=== PATIENT | male | born 1980 | race Caucasian/White ===

== ENCOUNTER 2023-09-14 03:52 | Emergency (ER) | payer OTHER, SELFPAY ==
[2023-09-14 03:56] VITALS: BP 145/99
[2023-09-14 04:21] VITALS: BMI 44.1
[2023-09-14 04:45] VITALS: BP 127/89
[2023-09-14 04:58] LABS: Urine Albumin Negative (Neg - Trace); Urine Bilirubin Negative (Negative); Urine Character Clear (Clear); Urine Color Yellow; Urine Glucose Negative (Negative); Urine Ketone Negative (Negative); Urine Leukocyte Negative (Negative); Urine Nitrite Negative (Negative); Urine Occult Blood Negative (Negative); Urine Urobilinogen Negative (Neg - 1+)
--- NOTE | 2023-09-14 04:58 | ED.GENMED ---
History of Present Illness
<LORE Cade - Last Filed: 09/14/23 05:57>
General
Chief Complaint: Abdominal Pain
Time Seen by Provider: 09/14/23 04:01
History of Present Illness
History of Present Illness:
Pt is a 42 y/o male with PMHx of HTN, GERD, and Lupus presenting for abdominal pain x 2.5 hours. He states that he had 4 bouts of nonbloody diarrhea from 9pm to 10:30pm, went to bed, and woke up at 0230am this morning due to lower abdominal pain. He
states that the pain was initially in the groin and lower abdomen but is now only in the lower abdomen. He states it does not radiate anywhere and is a 6/10 at rest and an 8/10 with movement. He states he took Tylenol when the pain started which
mildly alleviated the symptoms. He states he has had pancreatitis in the past but this pain is much lower than it was then. He denies any alcohol, drug, or tobacco use. He denies any fevers, nausea, vomiting, back pain, chest pain, SOB, or urinary
symptoms.
Past History
<LORE Cade - Last Filed: 09/14/23 05:57>
Past History
ED Past Medical History: GERD, Other (Diverticulosis) and Other
ED Past Surgical History: Other (L hernia repair)
Social History
Tobacco: Non-smoker
Alcohol: None
Drug: None
Personal:
Living: with family
Employment: Employed
Family History
Family History: Other (no h/o gallstones)
Phy Exam
<LORE Cade - Last Filed: 09/14/23 05:57>
Physical Exam
Physical Exam:
GENERAL: Alert , in no apparent distress
EYE: pupils equal and reactive
Throat: Airway intact, no exudates
NECK: Supple, no significant adenopathy.
CARDIAC: Regular rate and rhythm .
LUNGS: Clear breath sounds bilaterally, no acute respiratory distress, no wheezes/rales/rhonchi
ABDOMEN: Pain with palpation to the entire lower abdomen, worse in the middle lower abdomen. Negative Rovsing's, psoas, and obturator signs. Soft, nondistended, no cvat. No suprapubic tenderness.
NEUROLOGICAL: Alert and oriented, no focal neuro deficits
SKIN: Warm and dry, skin intact.
MUSCULOSKELETAL: No edema, well perfused.
PSYCH: Normal and appropriate interaction.
Course
<Sky Reid [facility] - Last Filed: 09/14/23 05:57>
Orders/Labs/Results
Orders:
Orders
09/14/23 04:01
Electrocardiogram (*1) Stat
Reason for Study: Abdominal Pain
Cardiac Monitoring- Treatment ONCE
EKG- Treatment ONCE
09/14/23 04:46
Complete Blood Count/With Diff Urgent
Comprehensive Metabolic Panel Urgent
Lipase Urgent
PTT Urgent
Prothrombin Time Urgent
Troponin I Urgent
Urinalysis Reflex To Culture Urgent
Date Specimen was Collected: 09/14/23
Time Specimen was Collected: 04:18
09/14/23 05:13
CT Abd/pelvis W Iv Cont Urgent
Comment:
Reason For Exam: lowe abdominal pain
09/14/23 06:13
Amoxicillin 875 mg/Clav 125 mg [Augmentin 875 mg/125 mg] 1 tablet PO NOW STA
Abnormal Lab Results
09/14/23
04:46
Absolute Neuts (auto) 8.7 H 10^3/uL
(1.4-6.5)
Absolute Lymphs (auto) 1.0 L 10^3/uL
(1.2-3.4)
Neutrophils % 83.6 H %
(42.2-75.2)
Lymphocytes % 9.9 L %
(20.5-51.1)
APTT 36.7 H Sec
(23.4-35.0)
Glucose 106 H mg/dl
(70-99)
09/14/23 04:46
09/14/23 04:46
Vital Signs
Initial and Last Documented VS:
Initial Vital Signs
Temp Pulse Resp BP Pulse Ox
99.6 F 91 20 145/99 99
09/14/23 03:56 09/14/23 03:56 09/14/23 03:56 09/14/23 03:56 09/14/23 03:56
Last Documented Vital Signs
Temp Pulse Resp BP Pulse Ox
99.6 F 94 20 130/83 99
09/14/23 03:56 09/14/23 05:30 09/14/23 05:30 09/14/23 05:30 09/14/23 05:30
<Ashwin Lloyd, DO - Last Filed: 09/14/23 06:36>
Orders/Labs/Results
Orders:
Orders
09/14/23 04:01
Electrocardiogram (*1) Stat
Reason for Study: Abdominal Pain
Cardiac Monitoring- Treatment ONCE
EKG- Treatment ONCE
09/14/23 04:46
Complete Blood Count/With Diff Urgent
Comprehensive Metabolic Panel Urgent
Lipase Urgent
PTT Urgent
Prothrombin Time Urgent
Troponin I Urgent
Urinalysis Reflex To Culture Urgent
Date Specimen was Collected: 09/14/23
Time Specimen was Collected: 04:18
09/14/23 05:13
CT Abd/pelvis W Iv Cont Urgent
Comment:
Reason For Exam: lowe abdominal pain
09/14/23 06:13
Amoxicillin 875 mg/Clav 125 mg [Augmentin 875 mg/125 mg] 1 tablet PO NOW STA
Abnormal Lab Results
09/14/23
04:46
Absolute Neuts (auto) 8.7 H 10^3/uL
(1.4-6.5)
Absolute Lymphs (auto) 1.0 L 10^3/uL
(1.2-3.4)
Neutrophils % 83.6 H %
(42.2-75.2)
Lymphocytes % 9.9 L %
(20.5-51.1)
APTT 36.7 H Sec
(23.4-35.0)
Glucose 106 H mg/dl
(70-99)
09/14/23 04:46
09/14/23 04:46
Vital Signs
Initial and Last Documented VS:
Initial Vital Signs
Temp Pulse Resp BP Pulse Ox
99.6 F 91 20 145/99 99
09/14/23 03:56 09/14/23 03:56 09/14/23 03:56 09/14/23 03:56 09/14/23 03:56
Last Documented Vital Signs
Temp Pulse Resp BP Pulse Ox
99.6 F 94 20 130/83 99
09/14/23 03:56 09/14/23 05:30 09/14/23 05:30 09/14/23 05:30 09/14/23 05:30
<LORE Cade - Last Filed: 09/14/23 05:57>
*Pulse Oximetry
Patient hypoxic: no
*EKG
Interpreted by ED Provider?: Yes
EKG Intrepretation Date: 09/14/23
Interpretation: abnormal
Comparison EKG: no changes
Heart Rate: 92
Rate: normal
Rhythm: sinus
[place]: normal axis
Interval: normal interval
QRS Pattern: low voltage and left vent hypertrophy
Ischemia: no ischemia
*Cake Cutter Machine Interpretation
Rate: Cake Cutter Machine- N/A
*Critical Care Note
Total Time (30-74mins, 75-104mins- exclusive of procedures): Not Applicable
<Ashwin Lloyd DO - Last Filed: 09/14/23 06:36>
Update Note
Update Note:
Findings:
Visualized portion of the lung bases are unremarkable.
The liver, spleen, kidneys, adrenal glands and pancreas are within normal limits. Gallbladder is without calcified stones.
No abdominal aortic aneurysm.
No enlarged lymph nodes or free air. Diverticulosis coli. Moderate wall thickening and inflammatory change surrounding the proximal to mid sigmoid colon. The bowel is without evidence of obstruction, perforation or abscess. Small amount of reactive
free fluid in the pelvis.
Bladder unremarkable.
Grossly no suspicious osseous lesions are identified.
IMPRESSION:
1. Acute uncomplicated sigmoid diverticulitis.
Up-to-date CT equipment and radiation dose reduction techniques were employed. CTDIvol: 23.1 mGy. DLP: 1414 mGy-cm.
Electronically signed by Juan Harris, 09/14/2023 6:08 AM
[employer] Dose Report: Up-to-date CT equipment and radiation dose reduction techniques were employed. CTDIvol: 23.1 mGy. DLP: 1414 mGy-cm.
ED Attending Note
<LORE Cade - Last Filed: 09/14/23 05:57>
-
Portions of this chart may have been created with voice recognition software.� Occasional wrong word or��sound alike� substitutions may have occurred due to the inherent limitations of voice recognition software.
<Ashwin Lloyd DO - Last Filed: 09/14/23 06:36>
ED Attending Note
Patient seen and examined by attending physician: Yes
I performed the substantive portion of visit, reviewed & personally made and approve the management plan that is documented in note by myself or NUBIA.: Yes
ED Attending Note:
Pleasant 42-year-old male presents with abdominal pain for 2-1/2 hours prior to arrival. He states that he had 4 episodes of nonbloody diarrhea and then felt lower abdominal pain afterwards. Denies fever, chills, chest pain, or shortness of
breath. States that pain is exacerbated with movement but it is improving with time. Patient reports no sick contacts. He denies any alleviating factors. Patient was seen in conjunction with the PA student. I have reviewed and agree with the
history and treatment plan presented. On my independent physical exam, patient is awake, alert, and oriented x3, minimal acute distress. No respiratory distress.
Discharge Plan
Departure
Patient Disposition: Home (Routine Discharge)
Date of Disposition: 09/14/23
Time of Disposition: 06:14
Patient with high blood pressure during this ER visit?: Yes
Condition: Fair
Discharge Problem:
Diverticulitis
Instructions: Diverticulitis (DC)
Prescriptions:
New
amoxicillin-pot clavulanate 875-125 mg tablet
1 tab PO Q12H Qty: 20 0RF
No Action
cholecalciferol (vitamin D3) 2,000 UNITS tablet
2,000 unit PO DAILY
amlodipine 5 mg Tablet
5 mg PO DAILY
omeprazole 40 mg Capsule,Delayed Release(Dr/Ec)
40 mg PO DAILY
hydroxychloroquine [Plaquenil] 200 mg Tablet
400 mg PO HS
levocetirizine [Xyzal] 5 mg Tablet
5 mg PO DAILY
albuterol sulfate 90 mcg/actuation Hfa Aerosol Inhaler
2 puff INHALATION R Q6HPRN PRN (Reason: sob)
vitamin B complex Tablet
1 tab PO DAILY
Referrals:
Rashid Chen MD [Family Provider] -
Activity Restrictions/Additional Instructions:
It was a pleasure meeting you and taking part in your care. We hope for your continued healing and wellness.
Please read discharge instructions in their entirety. However, they are for general education and may not describe your exact diagnosis at discharge. Information on your ER visit and medical conditions were discussed with you along with appropriate
follow up information...
If indicated, please take your medications as instructed and indicated on discharge paperwork.
Please schedule a follow up appointment as directed. Call to schedule an appointment
Please return to the emergency department with ANY change in, persisting, or worsening of symptoms. If any of your symptoms do not improve, or persist, or become more severe within 6-12 hours, please return to the emergency department for further
care.
Please return to the emergency department if you develop a headache, neck pain/stiffness, fever greater than 100.4F, chest pain, shortness of breath, persistent nausea, vomiting, slurred speech, difficulty walking, numbness/tingling, weakness, signs
of infection or any other symptoms that are worrisome to you.
If you have any questions or concerns please do not hesitate to call the Hospital at or E-mail me directly at [email or web address]
Interventions
Interventions:
*Risk Screen - Suicide Last Done: 09/14/23 03:56
*General Assessment Last Done: 09/14/23 03:56
*Neglect/Abuse Screening Last Done: 09/14/23 03:56
ED- Fall Risk Assessment Last Done: 09/14/23 03:56
*ED COVID-19 Vaccine History Last Done: 09/14/23 03:56
AI-Bxkxcw-Tfqokrdort Assessment Last Done: 09/14/23 04:24
Discharge Date and Time
Print Language: ARMENIAN
[2023-09-14 04:59] LABS: % Basophils 0.5 % (0-2); % Eosinophils 1.2 % (0-6); % Immature Granulocytes 0.4 % (0-0.5); % Lymphocytes 9.9 % (20.5-51.1); % Monocytes 4.4 % (1.7-9.3); % Neutrophils 83.6 % (42.2-75.2); Absolute Basophils 0.1 10^3/uL (0-0.2); Absolute Eosinophils 0.1 10^3/uL (0-0.7); Absolute Monocytes 0.5 10^3/uL (0.1-0.6); Absolute Neutrophils 8.7 10^3/uL (1.4-6.5); Hematocrit 41.3 % (39.0-52.0); Hemoglobin 13.9 g/dL (13.0-18.0); Mean Corp Hgb Conc. 33.7 g/dL (33.0-37.0); Mean Corpuscular Hgb 28.7 pg (27.0-31.0); Mean Corpuscular Volume 85.2 fL (80.0-94.0); Nucleated Red Blood Cells % 0 % (-); Platelet Count 249 10^3/uL (130-400); Red Blood Cell Count 4.85 10^6/uL (4.70-6.10); Red Cell Dist. Width 14.1 % (11.5-14.5); White Blood Cell Count 10.3 10^3/uL (4.8-10.8)
[2023-09-14 05:00] VITALS: BP 120/87
[2023-09-14 05:14] LABS: INR 1.07
[2023-09-14 05:15] LABS: APTT 36.7 Sec (23.4-35.0)
[2023-09-14 05:27] LABS: ALT (SGPT) 24 U/L (0-50); AST (SGOT) 23 U/L (17-59); Albumin 4.2 g/dl (3.5-5.0); Alkaline Phosphatase 69 U/L (38-126); Blood Urea Nitrogen 17 mg/dl (9-20); Calcium 9.8 mg/dl (8.4-10.2); Carbon Dioxide 27 mmol/L (22-30); Chloride 106 mmol/L (98-107); Glucose 106 mg/dl (70-99); Lipase 25 U/L (23-300); Potassium 4.5 mmol/L (3.5-5.1); Sodium 141 mmol/L (135-145); Total Bilirubin 0.4 mg/dl (0.2-1.3); Total Protein 6.8 g/dl (6.3-8.2); eGFR > 60.00
[2023-09-14 05:30] VITALS: BP 130/83
[2023-09-14 05:35] LABS: Troponin I < 0.012 ng/ml
[2023-09-14] MEDS: AUGMENTIN 875 MG/125 MG 1 TABLET PO (06:22)
== END 2023-09-14 07:00 | disposition home or self-care (01) ==
LOC: EMR 03:52
PROVIDERS: EMERGENCY PHYSICIAN Student in an Organized Health Care Education/Training Program; FAMILY PHYSICIAN Family Medicine
DX: R10.9 Unspecified abdominal pain (principal); I10 Essential (primary) hypertension; K21.9 Gastro-esophageal reflux disease without esophagitis; M32.9 Systemic lupus erythematosus, unspecified; Z87.19 Personal history of other diseases of the digestive system
CPT/HCPCS: 99284; 74177; 80053; 81003; 83690; 84484; 85025; 85610; 85730; 93005; Q9967

== ENCOUNTER 2023-09-15 16:14 | Emergency (ER) | payer OTHER, SELFPAY ==
[2023-09-15 16:16] VITALS: BP 134/96
[2023-09-15 17:04] VITALS: BP 142/88
[2023-09-15] MEDS: NSS 1000 IV ×2 (17:17→19:19)
[2023-09-15] MEDS: TYLENOL 650 MG PO (17:21)
[2023-09-15] MEDS: MORPHINE SULFATE 4 MG IV (17:21)
[2023-09-15 17:33] LABS: % Basophils 0.3 % (0-2); % Eosinophils 0.1 % (0-6); % Immature Granulocytes 0.5 % (0-0.5); % Lymphocytes 4.8 % (20.5-51.1); % Monocytes 5.1 % (1.7-9.3); % Neutrophils 89.2 % (42.2-75.2); Absolute Basophils 0.1 10^3/uL (0-0.2); Absolute Immature Granulocytes 0.1 10^3/uL (0-0.05); Absolute Lymphocytes 0.9 10^3/uL (1.2-3.4); Absolute Neutrophils 16.5 10^3/uL (1.4-6.5); Hematocrit 37.2 % (39.0-52.0); Hemoglobin 12.8 g/dL (13.0-18.0); Mean Corp Hgb Conc. 34.4 g/dL (33.0-37.0); Mean Corpuscular Hgb 28.8 pg (27.0-31.0); Mean Corpuscular Volume 83.6 fL (80.0-94.0); Nucleated Red Blood Cells % 0 % (-); Platelet Count 249 10^3/uL (130-400); Red Blood Cell Count 4.45 10^6/uL (4.70-6.10); Red Cell Dist. Width 14.2 % (11.5-14.5); White Blood Cell Count 18.5 10^3/uL (4.8-10.8)
--- NOTE | 2023-09-15 17:39 | ED.GENMED ---
History of Present Illness
General
Chief Complaint: Abdominal Pain
Source: patient
Exam Limitations: none
Time Seen by Provider: 09/15/23 16:57
Nursing documentation reviewed up to this point in time: agreed with
History of Present Illness
History of Present Illness:
Patient diagnosed with diverticulitis 24 hours ago, who has taken 3 doses of Augmentin, presents to ED secondary to continual fever with abdominal pain. Last dose of Tylenol was taken at 10 AM this morning. Denies nausea or vomiting. Denies
diarrhea. Denies dizziness or weakness. Patient does report decreased appetite.
Past History
Past History
ED Past Medical History: GERD, Other (Diverticulosis) and Other
ED Past Surgical History: Other (L hernia repair)
Social History
Tobacco: Non-smoker
Alcohol: None
Drug: None
Personal:
Living: with family
Employment: Employed
Family History
Family History: Other (no h/o gallstones)
Review of Systems
Review of Systems
Allergies reviewed?: Yes
All Other Systems: ROS reviewed and negative except as documented in HPI and ROS
Constitutional: Reports no symptoms
EENT: Reports no symptoms
ABD/GI: Reports abdominal pain and diarrhea; Denies nausea or vomiting
Musculoskeletal: Reports no symptoms
Skin: Reports no symptoms
Neurological: Reports no symptoms
Phy Exam
Physical Exam
Physical Exam:
Physical Exam
General: mild painful distress, not acutely ill. afebrile
Head: nc/at. eomi
Neck: supple. no meningeal signs.
Heart: tachycardic, no murmur. equal radial pulses.
Lungs: no acute respiratory distress. clear bilaterally
Abdomen: normal bowel sounds. mild LLQ tenderness to palpation, without guarding
Neuro: alert and oriented. no focal neurological deficits
Skin: no rash
Psychiatric: well kept. interactive and cooperative
Extremities: no edema. no calf tenderness.
Course
Orders/Labs/Results
Orders:
Orders
09/15/23 17:12
0.9% Sodium Chloride 1000 ml [Nss] 1,000 ml IV BOLUS
0.9% Sodium Chloride 1000 ml [Nss] 1,000 ml IV BOLUS
Acetaminophen [Tylenol] 650 mg PO NOW STA
Morphine Sulfate 4 mg IV NOW STA
09/15/23 17:16
Complete Blood Count/With Diff Urgent
Comprehensive Metabolic Panel Urgent
09/15/23 20:33
Oxycodone/Acetaminophen [Percocet 5/325] 1 tablet PO NOW STA
Abnormal Lab Results
09/15/23
17:16
WBC 18.5 H 10^3/uL
(4.8-10.8)
RBC 4.45 L 10^6/uL
(4.70-6.10)
Hgb 12.8 L g/dL
(13.0-18.0)
Hct 37.2 L %
(39.0-52.0)
Abs Immat Gran (auto) 0.1 H 10^3/uL
(0-0.05)
Absolute Neuts (auto) 16.5 H 10^3/uL
(1.4-6.5)
Absolute Lymphs (auto) 0.9 L 10^3/uL
(1.2-3.4)
Absolute Monos (auto) 1.0 H 10^3/uL
(0.1-0.6)
Neutrophils % 89.2 H %
(42.2-75.2)
Lymphocytes % 4.8 L %
(20.5-51.1)
Glucose 107 H mg/dl
(70-99)
09/15/23 17:16
09/15/23 17:16
Vital Signs
Initial and Last Documented VS:
Initial Vital Signs
Temp Pulse Resp BP Pulse Ox
99.1 F 124 18 134/96 98
09/15/23 16:16 09/15/23 16:16 09/15/23 16:16 09/15/23 16:16 09/15/23 16:16
Last Documented Vital Signs
Temp Pulse Resp BP Pulse Ox
99.3 F 104 25 116/88 95
09/15/23 18:34 09/15/23 20:42 09/15/23 20:42 09/15/23 20:42 09/15/23 20:42
MDM/Problems Addressed
MDM/Problems Addressed:
Patient reports improvement symptoms after treatment, along with improved vital signs. Patient with likely ongoing symptoms secondary to diverticulitis. Exam findings inconsistent with perforation or abscess formation at this time. With only 3
doses taken, difficult to determine whether or not patient is failing on Augmentin. After discussion with patient and spouse, decision made to discharge patient home at this time with continuation of Augmentin. Advised PCP follow-up as an
outpatient, or return to ED with worsening symptoms, despite taking antibiotics.
*Critical Care Note
Total Time (30-74mins, 75-104mins- exclusive of procedures): Not Applicable
ED Attending Note
-
Portions of this chart may have been created with voice recognition software.� Occasional wrong word or��sound alike� substitutions may have occurred due to the inherent limitations of voice recognition software.
Discharge Plan
Departure
Patient Disposition: Home (Routine Discharge)
Date of Disposition: 09/15/23
Time of Disposition: 20:34
Patient with high blood pressure during this ER visit?: Yes
Condition: Fair
Discharge Problem:
Diverticulitis
Instructions: Diverticulitis (DC)
Prescriptions:
New
oxycodone 5 mg tablet
5 mg PO Q8H PRN (Reason: Pain) Qty: 10 0RF
No Action
cholecalciferol (vitamin D3) 2,000 UNITS tablet
2,000 unit PO DAILY
amlodipine 5 mg Tablet
5 mg PO DAILY
omeprazole 40 mg Capsule,Delayed Release(Dr/Ec)
40 mg PO DAILY
hydroxychloroquine [Plaquenil] 200 mg Tablet
400 mg PO HS
levocetirizine [Xyzal] 5 mg Tablet
5 mg PO DAILY
albuterol sulfate 90 mcg/actuation Hfa Aerosol Inhaler
2 puff INHALATION R Q6HPRN PRN (Reason: sob)
vitamin B complex Tablet
1 tab PO DAILY
amoxicillin-pot clavulanate 875-125 mg tablet
1 tab PO Q12H Qty: 20 0RF
Referrals:
Rashid Chen MD [Family Provider] -
Activity Restrictions/Additional Instructions:
As discussed, please follow-up with your primary care physician with any further concerns. Your prescription has been sent electronically to [facility] in [place].
Interventions
Interventions:
*Risk Screen - Suicide Last Done: 09/15/23 16:16
*General Assessment Last Done: 09/15/23 16:16
*Neglect/Abuse Screening Last Done: 09/15/23 16:16
ED- Fall Risk Assessment Last Done: 09/15/23 18:54
*ED COVID-19 Vaccine History Last Done: 09/15/23 18:54
*Nursing Disposition Last Done: 09/15/23 20:48
CH-Rmacjv-Ohmkooqdoo Assessment Last Done: 09/15/23 17:07
Discharge Date and Time
Discharge Date/Time: 09/15/23 20:51
Print Language: SYRIAC
[2023-09-15 17:47] LABS: ALT (SGPT) 19 U/L (0-50); AST (SGOT) 19 U/L (17-59); Albumin 3.9 g/dl (3.5-5.0); Alkaline Phosphatase 79 U/L (38-126); Blood Urea Nitrogen 12 mg/dl (9-20); Calcium 9.2 mg/dl (8.4-10.2); Carbon Dioxide 25 mmol/L (22-30); Chloride 105 mmol/L (98-107); Glucose 107 mg/dl (70-99); Potassium 3.9 mmol/L (3.5-5.1); Sodium 137 mmol/L (135-145); Total Bilirubin 0.9 mg/dl (0.2-1.3); Total Protein 6.6 g/dl (6.3-8.2); eGFR > 60.00
[2023-09-15 18:00] VITALS: BP 121/75
[2023-09-15 19:00] VITALS: BP 115/79
[2023-09-15 20:00] VITALS: BP 112/74
[2023-09-15 20:42] VITALS: BP 116/88
[2023-09-15] MEDS: PERCOCET 5/325 1 TABLET PO (20:42)
== END 2023-09-15 20:51 | disposition home or self-care (01) ==
LOC: EMR 16:14
PROVIDERS: EMERGENCY PHYSICIAN Emergency Medicine; FAMILY PHYSICIAN Family Medicine
DX: K57.92 Diverticulitis of intestine, part unspecified, without perforation or abscess without bleeding (principal); K21.9 Gastro-esophageal reflux disease without esophagitis
CPT/HCPCS: 99283; 96374; 96361; 80053; 85025

== ENCOUNTER 2023-09-21 02:43 | Inpatient (IN) | payer OTHER, SELFPAY ==
[2023-09-20 19:20] VITALS: BP 163/100
[2023-09-20] MEDS: TYLENOL 1000 MG PO (19:23)
[2023-09-20 19:49] LABS: % Basophils 0.5 % (0-2); % Eosinophils 0.6 % (0-6); % Immature Granulocytes 0.7 % (0-0.5); % Lymphocytes 8.4 % (20.5-51.1); % Neutrophils 83.8 % (42.2-75.2); Absolute Basophils 0.1 10^3/uL (0-0.2); Absolute Eosinophils 0.1 10^3/uL (0-0.7); Absolute Immature Granulocytes 0.1 10^3/uL (0-0.05); Absolute Lymphocytes 1.4 10^3/uL (1.2-3.4); Absolute Neutrophils 14.1 10^3/uL (1.4-6.5); Hematocrit 38.1 % (39.0-52.0); Hemoglobin 12.8 g/dL (13.0-18.0); Mean Corp Hgb Conc. 33.6 g/dL (33.0-37.0); Mean Corpuscular Hgb 28.3 pg (27.0-31.0); Mean Corpuscular Volume 84.1 fL (80.0-94.0); Mean Platelet Volume 9.2 fL (7.4-10.4); Nucleated Red Blood Cells % 0 % (-); Platelet Count 404 10^3/uL (130-400); Red Blood Cell Count 4.53 10^6/uL (4.70-6.10); Red Cell Dist. Width 14.3 % (11.5-14.5); White Blood Cell Count 16.8 10^3/uL (4.8-10.8)
[2023-09-20 20:00] LABS: Lactic Acid 2.1 mmol/L (0.7-2.0)
[2023-09-20 20:08] LABS: ALT (SGPT) 25 U/L (0-50); AST (SGOT) 27 U/L (17-59); Albumin 4.3 g/dl (3.5-5.0); Alkaline Phosphatase 76 U/L (38-126); Blood Urea Nitrogen 11 mg/dl (9-20); Calcium 9.2 mg/dl (8.4-10.2); Carbon Dioxide 25 mmol/L (22-30); Chloride 101 mmol/L (98-107); Glucose 142 mg/dl (70-99); Potassium 4.2 mmol/L (3.5-5.1); Sodium 138 mmol/L (135-145); Total Bilirubin 0.4 mg/dl (0.2-1.3); Total Protein 7.2 g/dl (6.3-8.2); eGFR > 60.00
--- NOTE | 2023-09-20 20:44 | ED.GENMED ---
History of Present Illness
General
Chief Complaint: Fever
Source: patient
Exam Limitations: none
Time Seen by Provider: 09/20/23 20:34
Nursing documentation reviewed up to this point in time: agreed with
History of Present Illness
History of Present Illness:
42-year-old male with a past medical history of hypertension who presents to the emergency room for evaluation of persistent abdominal pain and fever. Patient was notably seen in this emergency room 09/14/2023 for abdominal pain and fever; he was
found to have acute uncomplicated diverticulitis and was started on Augmentin. He is currently on day 6 of 7 of his antibiotic course. He says that initially his pain improved but then it began to worsen and quality has changed�initially he was
having diffuse pain that was sharp with movement. Now he describes a worsening dull pain across his lower abdomen and into his perineum. He reports that he was initially having fevers that improved but over the past day or 2 fevers have returned.
He says he is having diarrhea, had multiple episodes of nonbloody yellowish stool today. Denies any nausea or vomiting. He does report some mild dysuria denies change in urinary frequency. His only other complaint is a mild cough although he
denies any chest pain or shortness of breath.
Past History
Past History
ED Past Medical History: GERD, Other (Diverticulosis) and Other
ED Past Surgical History: Other (L hernia repair)
Social History
Tobacco: Non-smoker
Alcohol: None
Drug: None
Personal:
Living: with family
Employment: Employed
Family History
Family History: Other (no h/o gallstones)
Review of Systems
Review of Systems
All Other Systems: ROS reviewed and negative except as documented in HPI and ROS
Constitutional: Reports fever and chills
EENT: Denies sore throat or runny nose
Respiratory: Reports cough; Denies trouble breathing
Cardiac: Denies chest pain or palpitations
ABD/GI: Reports abdominal pain and diarrhea; Denies nausea, vomiting or bloody stools
: Reports dysuria; Denies frequency or flank pain
Musculoskeletal: Denies neck pain or back pain
Neurological: Denies dizzy or headache
Phy Exam
Physical Exam
Physical Exam:
General: Awake, alert, oriented x3; no acute distress
Head: Normocephalic, atraumatic
Eyes: Conjunctiva normal, sclera anicteric
Throat: Airway intact, handling secretions
Neck: Trachea midline, supple without meningismus
Lungs: Clear to auscultation bilaterally, no wheezing, rales, rhonchi
Heart: Tachycardia with regular rhythm, no murmurs, gallops, or rubs
Abd: Soft, non distended, tender to palpation across lower abdomen worse in the suprapubic region
Neuro: No gross deficits
Skin: no rash
Extremities: No edema in extremities, warm well-perfused
Scores
Heart Failure Risk
Heart Failure Risk Score: Not Applicable
Heart Score for Chest Pain Patients
STEMI patient?: Not applicable
Withdrawal Assessment of Alcohol
Withdrawal Assessment Completed?: Not applicable
Course
Orders/Labs/Results
Orders:
Orders
09/20/23 19:22
Electrocardiogram (*1) Urgent
Reason for Study: Other
Other Reason for Exam: Possible Sepsis
09/20/23 19:23
EKG- Treatment ONCE
Acetaminophen [Tylenol] 1,000 mg PO NOW STA
09/20/23 19:38
Complete Blood Count/With Diff Urgent
Comprehensive Metabolic Panel Urgent
09/20/23 19:39
Lactic Acid Stat
09/20/23 20:36
CT Abd/pelvis W Iv Cont Urgent
Comment:
Reason For Exam: worsening LLQ abd pain, continued fevers
09/20/23 20:42
Ketorolac [Toradol] 15 mg IV NOW STA
09/20/23 20:44
0.9% Sodium Chloride 500 ml [Nss] 500 ml IV BOLUS
09/20/23 21:41
Urinalysis Reflex To Culture Urgent
Date Specimen was Collected: 09/20/23
Time Specimen was Collected: 21:39
09/21/23 00:01
Piperacillin/Tazo 3.375 Gram [Zosyn] 3.375 gram in 50 ml IV NOW
09/21/23 00:04
ColoRectal Surgery Consult Routine
Consulting Provider: Marc Haas
Was physician already notified: No
Reason for consult: diverticulitis with abscess
Consult Notification Routine
Specialty to Notify: Colorectal Surgery
09/21/23 02:00
Flush (0.9% Sodium Chloride) [Flush (Nss)] See Dose Instructions IV PER PROTOCOL
Abnormal Lab Results
09/20/23 09/20/23
19:38 19:39
WBC 16.8 H 10^3/uL
(4.8-10.8)
RBC 4.53 L 10^6/uL
(4.70-6.10)
Hgb 12.8 L g/dL
(13.0-18.0)
Hct 38.1 L %
(39.0-52.0)
Plt Count 404 H D 10^3/uL
(130-400)
Abs Immat Gran (auto) 0.1 H 10^3/uL
(0-0.05)
Absolute Neuts (auto) 14.1 H 10^3/uL
(1.4-6.5)
Absolute Monos (auto) 1.0 H 10^3/uL
(0.1-0.6)
Immature Gran % 0.7 H %
(0-0.5)
Neutrophils % 83.8 H %
(42.2-75.2)
Lymphocytes % 8.4 L %
(20.5-51.1)
Glucose 142 H mg/dl
(70-99)
Lactic Acid 2.1 H mmol/L
(0.7-2.0)
09/20/23 19:38
09/20/23 19:38
Vital Signs
Pulse: 89
Initial and Last Documented VS:
Initial Vital Signs
Temp Pulse Resp BP Pulse Ox
39.1 C H 120 20 163/100 98
09/20/23 19:20 09/20/23 19:20 09/20/23 19:20 09/20/23 19:20 09/20/23 19:20
Last Documented Vital Signs
Temp Pulse Resp BP Pulse Ox
36.7 C 87 18 123/92 98
09/20/23 20:55 09/21/23 00:30 09/21/23 00:30 09/21/23 00:30 09/21/23 00:30
MDM/Problems Addressed
Differential Diagnosis Includes:
Diverticulitis with abscess or perforation, UTI, kidney stone
MDM/Problems Addressed:
42-year-old male with history as documented returns to the emergency room for continued abdominal pain and fevers�diagnosed with diverticulitis 6 days ago symptoms initially improved and now worsening despite antibiotic treatment. He arrives
tachycardic and febrile; hypertensive. Normal respiratory rate and normal pulse ox on room air. Physical exam as above. Check labs with CBC and CMP. Check urinalysis. Check CT abdomen pelvis. Check an EKG. Provide IV fluids and pain control.
Antipyretic. Reassess after the above.
Labs reviewed: CBC shows leukocytosis to 16.8. CMP clinically significant abnormality. Lactate was marginally elevated 2.1. Awaiting results of CT, UA.
CT abdomen pelvis called back by radiology: Positive for diverticulitis with adjacent abscess. Will cover with IV Zosyn. Will admit for continued treatment. Discussed with colorectal surgeon who accepted to his service.
*Critical Care Note
Total Time (30-74mins, 75-104mins- exclusive of procedures): Not Applicable
Patient Management
Discussion with other providers: Aircraft Instrument Mechanic (Discussed with colorectal surgery)
Escalation/DeEscalation of care consider admission/obs:
Admission indicated
ED Attending Note
-
Portions of this chart may have been created with voice recognition software.� Occasional wrong word or��sound alike� substitutions may have occurred due to the inherent limitations of voice recognition software.
Discharge Plan
Departure
Patient Disposition: Admit
Date of Disposition: 09/21/23
Time of Disposition: 00:06
Admit to doctor: Waldo
Presentation/result/management discussed w/ accepting MD/DO: Colorectal surgeon
Discharge Problem:
Diverticulitis of intestine with abscess
Prescriptions:
No Action
cholecalciferol (vitamin D3) 2,000 UNITS tablet
2,000 unit PO DAILY
amlodipine 5 mg Tablet
5 mg PO DAILY
omeprazole 40 mg Capsule,Delayed Release(Dr/Ec)
40 mg PO DAILY
hydroxychloroquine [Plaquenil] 200 mg Tablet
400 mg PO HS
levocetirizine [Xyzal] 5 mg Tablet
5 mg PO DAILY
albuterol sulfate 90 mcg/actuation Hfa Aerosol Inhaler
2 puff INHALATION R Q6HPRN PRN (Reason: sob)
vitamin B complex Tablet
1 tab PO DAILY
amoxicillin-pot clavulanate 875-125 mg tablet
1 tab PO Q12H Qty: 20 0RF
oxycodone 5 mg tablet
5 mg PO Q8H PRN (Reason: Pain) Qty: 10 0RF
Referrals:
Rashid Chen MD [Family Provider] -
Interventions
Interventions:
*Risk Screen - Suicide Last Done: 09/20/23 19:20
*General Assessment Last Done: 09/21/23 01:07
*Neglect/Abuse Screening Last Done: 09/20/23 19:20
ED- Neurological Assessment Last Done: 09/20/23 21:18
ED-Skin Assessment Last Done: 09/20/23 21:18
Discharge Date and Time
Print Language: EMIRATI
[2023-09-20] MEDS: TORADOL 15 MG IV (21:01)
[2023-09-20] MEDS: NSS 500 IV (21:03)
[2023-09-20 21:04] VITALS: BP 123/92
[2023-09-20 21:49] LABS: Urine Albumin Negative (Neg - Trace); Urine Bilirubin Negative (Negative); Urine Character Clear (Clear); Urine Color Yellow; Urine Glucose Negative (Negative); Urine Ketone Negative (Negative); Urine Leukocyte Negative (Negative); Urine Nitrite Negative (Negative); Urine Occult Blood Negative (Negative); Urine Specific Gravity 1.005 (<1.030); Urine Urobilinogen Negative (Neg - 1+)
[2023-09-21] VITALS (13 sets, daily range): BP systolic 92–142; BP diastolic 64–92
[2023-09-21] MEDS: ZOSYN 50 IV (00:07)
--- NOTE | 2023-09-21 01:54 | HP.FOC2 ---
Addendum entered and electronically signed by Marc Haas MD 09/21/23 15:54:
I saw and examined the patient.
The CHANNEL LIP WETTER's note was reviewed and I agree with the note.
Comment:
Seen in am.
History, vitals, labs, imaging reviewed. Patient seen and examined.
42 yo M with SLE, HTN, GERD with recent diverticulitis confirmed on CT with worsening diverticulitis despite antibiotics. CTs reviewed and yesterday's revealed a sizable abscess which appears accessible to IR drain placement. Plan is admission for
IVFs, antibiotics, diet restriction, and IR consult for drain placement.
Original Note:
Focused History & Physical
Chief Complaint
HPI:
Chief Complaint: abdominal pain and fever
HPI / Indication for Planned Procedure:
42YOM PMH of HTN, GERD, Lupus presents to the ER evaluation of persistent abdominal pain and fever. Patient was seen in this ER on 09/14/2023 for abdominal pain and fever; found to have acute uncomplicated diverticulitis and was discharged on
Augmentin. He finished 6 of 10 day of his antibiotic course. He reports that pain worsented from initially johnson diffused throughout the abdomen that was sharp with movement to now dull pain across lower abdomen. He reports that he was initially
having fevers that improved but over the past day or 2 fevers have returned. He also reports of having diarrhea, had multiple episodes of nonbloody yellowish stool today. Denies any nausea or vomiting. He does report some mild dysuria denies
change in urinary frequency. He denies any chest pain or shortness of breath.
Relevant Past Medical History: Hypertension and Other (GERD, Lupus)
Relevant Social History: Negative
Relevant Family History: Negative
Relevant Past Surgical History: Negative
Review of Systems
Review of Pertinent Systems: All Systems Negative Except for the Following Positives (abdomen tender to palpation below umbilical area - 3/10 pain at time of assessment. )
Medication
See Medication form for detailed medications: Yes
Medication List (including Herbals & OTC):
cholecalciferol (vitamin D3) 50 mcg (2,000 unit) tablet 2,000 unit PO DAILY Supplement 08/16/17
albuterol sulfate 90 mcg/actuation aerosol inhaler 2 puff inhalation R Q6HPRN PRN sob 01/01/23
amlodipine 5 mg tablet 5 mg PO DAILY Blood Pressure 01/01/23
hydroxychloroquine 200 mg tablet (Plaquenil) 400 mg PO HS lupus 01/01/23
levocetirizine 5 mg tablet (Xyzal) 5 mg PO DAILY Allergies 01/01/23
omeprazole 40 mg capsule,delayed release 40 mg PO DAILY Gastrointestinal Issue 01/01/23
vitamin B complex 1 tab PO DAILY Supplement 01/01/23
amoxicillin 875 mg-potassium clavulanate 125 mg tablet 1 tab PO Q12H #20 tabs 09/14/23
oxycodone 5 mg tablet 5 mg PO Q8H PRN Pain #10 tabs 09/15/23
Methotrexate 10mg BID Weekly
Medications Reviewed: Yes
Allergies and Reactions
Patient has Allergies: Yes
Noted Allergies and Reactions:
Allergy/AdvReac Type Severity Reaction Status Date / Time
hydromorphone [From Dilaudid] Allergy Intermediate Pharmacy Verified 09/20/23 19:22
to Review
Pertinent Physical Exam
All Other Systems: Negative
Head/Neck: Normal
Abdomen: Other (tender to palpation below umbilical area.)
Diagnosis / Assessment
Diverticulitis of intestine with abscess
09/20/23 CT abdomen and pelvis with IV contrast
IMPRESSION: Approximately 3.3X4.9X4cm peripherally enhancing abscess adjacent to the sigmoid colon and abutting a loop of small bowel. Moderate amount of surrounding fat stranding. No free air.
Moderate bladder thickening, likely reactive.
Plan / Procedure
Admit under Dr. Haas
# Diverticulitis with abscess
- NPO
- Abx Zosyn
- continue IVF
- Pain control -Toradol 10mg IV q6hr prn
DVT prophylaxis - Pneumatic compression sleeves
Full code
[2023-09-21] MEDS: NSS 1000 IV ×3 (03:00→22:35)
[2023-09-21 07:24] LABS: % Basophils 0.5 % (0-2); % Lymphocytes 10.4 % (20.5-51.1); % Monocytes 8.4 % (1.7-9.3); % Neutrophils 78.7 % (42.2-75.2); Absolute Basophils 0.1 10^3/uL (0-0.2); Absolute Eosinophils 0.1 10^3/uL (0-0.7); Absolute Immature Granulocytes 0.1 10^3/uL (0-0.05); Absolute Lymphocytes 1.5 10^3/uL (1.2-3.4); Absolute Monocytes 1.2 10^3/uL (0.1-0.6); Absolute Neutrophils 11.2 10^3/uL (1.4-6.5); Hematocrit 33.7 % (39.0-52.0); Hemoglobin 11.5 g/dL (13.0-18.0); Mean Corp Hgb Conc. 34.1 g/dL (33.0-37.0); Mean Corpuscular Hgb 29.3 pg (27.0-31.0); Mean Corpuscular Volume 85.8 fL (80.0-94.0); Mean Platelet Volume 9.5 fL (7.4-10.4); Nucleated Red Blood Cells % 0 % (-); Platelet Count 364 10^3/uL (130-400); Red Blood Cell Count 3.93 10^6/uL (4.70-6.10); Red Cell Dist. Width 14.1 % (11.5-14.5); White Blood Cell Count 14.2 10^3/uL (4.8-10.8)
--- NOTE | 2023-09-21 07:26 | PTCARENOTE ---
42YOM arrived on at 02:48 from ED, PMH of HTN, GERD, Lupus presents to the ER evaluation of persistent abdominal pain and fever. Patient was seen in this ER on 09/14/2023 for abdominal pain and fever; found to have acute uncomplicated
diverticulitis and was discharged on Augmentin. He finished 6 of 10 day of his antibiotic course. He reports that pain worsened from initially johnson diffused throughout the abdomen that was sharp with movement to now dull pain across lower abdomen.
He reports that he was initially having fevers that improved but over the past day or 2 fevers have returned. He also reports of having diarrhea, had multiple episodes of nonbloody yellowish stool today. Denies any nausea or vomiting. He does
report some mild dysuria denies change in urinary frequency. He denies any chest pain or shortness of breath. Relevant Past Medical History: Hypertension and Other (GERD, Lupus) CT om 09/13 showed abd abcess. Pt pain currently under control. PT AOx3,
bed in low position, call light in reach.
[2023-09-21 07:53] LABS: Blood Urea Nitrogen 9 mg/dl (9-20); Calcium 8.7 mg/dl (8.4-10.2); Carbon Dioxide 24 mmol/L (22-30); Chloride 105 mmol/L (98-107); Glucose 92 mg/dl (70-99); Potassium 4.3 mmol/L (3.5-5.1); Sodium 139 mmol/L (135-145); eGFR > 60.00
[2023-09-21] MEDS: TORADOL 10 MG IV ×3 (10:30→22:49)
--- NOTE | 2023-09-21 10:34 | CM ---
Patient seen at bedside, initial assessment completed. Ashwin lives with his and daughter in a mobile home with 3 entry steps. Patient has no DME and no history of VN or SNF in past. Patient family doctor Rashid Chen, pharmacy [facility]
[place]. Patient reports he has transportation upon his discharge. Patient denies any needs going home. CM will continue to follow for discharge planning needs.
PCP: Rashid Chen
Pharmacy: [facility]
Plan: D/C to home with no needs anticipated.
--- NOTE | 2023-09-21 11:03 | W.PN.CRS1 ---
Today's Communication / Plan
-
IR consult
Continue antibiotics
Assessment/Plan
-
Assessment: Acute sigmoid diverticulitis with 3.3 x 4.9 x 4 cm abscess within the anterior pelvis
Plan:
-Given abscess, will consult IR for drainage.
-If doing well can have clears post IR.
-Continue IV fluids.
-Continue IV antibiotics
-Continue trending white count, down to 14.2 from 16.8.
-No role for surgery at this time. If he were to worsen he would require a colectomy with colostomy creation.
-Possible role for elective surgery in the future. Will discuss on an outpatient setting.
Subjective Data
Subjective Data
Date of Service: September 21, 2023
Patient states he feels 'uncomfortable'. Initially he came in due to a fever and he was here previously this week. His only other attack was years ago. His last colonoscopy was at [facility] a year ago which showed diverticulosis. Currently he
feels like his pain is in the perineum and not so much in the abdomen. He had diarrhea coming in but it has since stopped. He denies any bleeding in his stools. He has no nausea or vomiting.
Objective Data
-
Vital Signs
Temp Pulse Resp BP Pulse Ox
100.1 F 90 12 127/77 96
09/21/23 07:00 09/21/23 07:00 09/21/23 07:00 09/21/23 07:00 09/21/23 07:00
Lab Results
09/21/23 06:27
09/21/23 06:27
Physical Exam
-
General: No Acute Distress and AOx3
Abdomen: Soft, Non Distended and Tender (Very mild left lower quadrant and suprapubic)
Skin: Warm and Dry
[2023-09-22 07:30] VITALS: BP 132/90
[2023-09-22] MEDS: NSS 1000 IV ×2 (07:54→19:34)
[2023-09-22] MEDS: TORADOL 10 MG IV ×3 (07:55→21:31)
[2023-09-22 08:46] LABS: % Basophils 0.5 % (0-2); % Eosinophils 2.5 % (0-6); % Immature Granulocytes 1.3 % (0-0.5); % Lymphocytes 11.8 % (20.5-51.1); % Monocytes 7.1 % (1.7-9.3); % Neutrophils 76.8 % (42.2-75.2); Absolute Basophils 0.1 10^3/uL (0-0.2); Absolute Eosinophils 0.3 10^3/uL (0-0.7); Absolute Immature Granulocytes 0.1 10^3/uL (0-0.05); Absolute Lymphocytes 1.3 10^3/uL (1.2-3.4); Absolute Monocytes 0.8 10^3/uL (0.1-0.6); Absolute Neutrophils 8.2 10^3/uL (1.4-6.5); Hematocrit 33.5 % (39.0-52.0); Hemoglobin 11.4 g/dL (13.0-18.0); Mean Corpuscular Hgb 29.5 pg (27.0-31.0); Mean Corpuscular Volume 86.8 fL (80.0-94.0); Mean Platelet Volume 9.2 fL (7.4-10.4); Nucleated Red Blood Cells % 0 % (-); Platelet Count 372 10^3/uL (130-400); Red Blood Cell Count 3.86 10^6/uL (4.70-6.10); Red Cell Dist. Width 14.4 % (11.5-14.5); White Blood Cell Count 10.7 10^3/uL (4.8-10.8)
[2023-09-22 09:47] LABS: Blood Urea Nitrogen 7 mg/dl (9-20); Carbon Dioxide 25 mmol/L (22-30); Chloride 105 mmol/L (98-107); Glucose 91 mg/dl (70-99); Potassium 4.5 mmol/L (3.5-5.1); Sodium 138 mmol/L (135-145); eGFR > 60.00
[2023-09-22 12:00] VITALS: BP 142/95
[2023-09-22] MEDS: ZOSYN 50 IV ×2 (13:57→19:33)
[2023-09-22] MEDS: ROXICODONE 5 MG PO (13:57)
[2023-09-22 15:10] VITALS: BP 105/70
--- NOTE | 2023-09-22 16:30 | W.PN.CRS1 ---
Today's Communication / Plan
-
IV ABX
Pain control
Assessment/Plan
-
42 yo male presenting with acute sigmoid diverticulitis with 3.3 x 4.9 x 4 cm abscess within the anterior pelvis now PPD #1 IR drainage
Leukocytosis improving
Pain at drain site but otherwise pain improving
Tolerating clears with +BM's/flatus
Febrile today to 102.7, vitals stable
Plan:
-Continue on clears
-Continue IV fluids.
-Zosyn 3.375gm q6h
-Continue trending labs/fevers
-Clarified Dilaudid adverse reaction: hypotension. Has tolerated other narcotics in the past. PRN Tylenol, oxycodone, morphine and scheduled Toradol
-No role for surgery at this time. If he were to worsen he would require a colectomy with colostomy creation.
-Possible role for elective surgery in the future. Will discuss on an outpatient setting.
Subjective Data
Subjective Data
Date of Service: September 22, 2023
Patient seen and examined at bedside with Dr. Jones. Patient's present, questions addressed. Denies n/v. Pain at drain insertion site. Passing flatus/stools. Fever this afternoon with chills.
Objective Data
-
Vital Signs
Temp Pulse Resp BP Pulse Ox
101.4 F H 117 18 105/70 94
09/22/23 15:10 09/22/23 15:10 09/22/23 15:10 09/22/23 15:10 09/22/23 15:10
Intake & Output
09/21/23 09/22/23 09/23/23
06:59 06:59 06:59
Intake Total 1400 / 1400 1685 / 1685
Output Total 30 / 30
Balance 1400 / 1400 1655 / 1655
Intake:
Oral fluids 480 / 480
IV fluids (Total) 1200 / 1200 1200 / 1200
IV piggybacks 200 / 200
Amount instilled into Drain (
Total)
Left Lower Abdomen Larry-
Edmond Placed in IR
Output:
Drain Output (Total)
Left Lower Abdomen Larry-
Edmond Placed in IR
Other:
Number of approximated MODERATE 2 1
amounts of urine
Lab Results
09/22/23 08:20
09/22/23 08:20
Physical Exam
-
General: No Acute Distress
HEENT: Grossly Normal
Abdomen: Soft, Non Distended and Tender (lower abdomen)
Skin: Warm
Wound: Other (IR drain with cloudy ssf )
[2023-09-22] MEDS: TYLENOL 1000 MG PO (17:58)
--- NOTE | 2023-09-22 18:35 | PTCARENOTE ---
pt became febrile(102.7) with increased pain. started IV ABT. Encourage movement (PNA, BS, DVt). there was some distressed family members about care. We were able to talk through and family did apologize for behavior.
[2023-09-22 23:16] VITALS: BP 104/70
[2023-09-23] MEDS: ZOSYN 50 IV ×4 (02:45→20:02)
[2023-09-23] MEDS: NSS 1000 IV ×3 (02:45→23:10)
[2023-09-23] MEDS: MORPHINE SULFATE 2 MG IV (02:58)
[2023-09-23] MEDS: TORADOL 10 MG IV ×4 (06:29→23:07)
[2023-09-23 07:25] VITALS: BP 114/73
[2023-09-23] MEDS: TYLENOL 1000 MG PO ×2 (08:17→23:25)
[2023-09-23 09:34] LABS: Hematocrit 34.5 % (39.0-52.0); Hemoglobin 11.6 g/dL (13.0-18.0); Mean Corp Hgb Conc. 33.6 g/dL (33.0-37.0); Mean Corpuscular Hgb 29.4 pg (27.0-31.0); Mean Corpuscular Volume 87.3 fL (80.0-94.0); Mean Platelet Volume 9.4 fL (7.4-10.4); Platelet Count 410 10^3/uL (130-400); Red Blood Cell Count 3.95 10^6/uL (4.70-6.10); Red Cell Dist. Width 14.4 % (11.5-14.5)
[2023-09-23 10:07] LABS: Blood Urea Nitrogen 6 mg/dl (9-20); Calcium 8.9 mg/dl (8.4-10.2); Carbon Dioxide 24 mmol/L (22-30); Chloride 104 mmol/L (98-107); Estimated Creatinine Clearance > 125 ml/min; Glucose 100 mg/dl (70-99); Potassium 4.5 mmol/L (3.5-5.1); Sodium 140 mmol/L (135-145); eGFR > 60.00
--- NOTE | 2023-09-23 12:38 | W.PN.CRS1 ---
Today's Communication / Plan
-
LRD
Labs in AM
Assessment/Plan
-
42 yo male presenting with acute sigmoid diverticulitis with 3.3 x 4.9 x 4 cm abscess within the anterior pelvis now PPD #2 IR drainage
Leukocytosis improved but now back up
Pain at drain site but otherwise pain improving
Tolerating diet with +BM's/flatus
Last fever was yesterday afternoon, currently AFVSS
Plan:
-Advance to LRD, advised to go slow
-Continue IV fluids.
-Zosyn 3.375gm q6h
-Continue trending labs/fevers
-PRN Tylenol, oxycodone, morphine and scheduled Toradol
-No role for surgery at this time. If he were to worsen he would require a colectomy with colostomy creation.
-Possible role for elective surgery in the future. Will discuss on an outpatient setting.
--VNA consult as patient will be discharged with drain and need to flush
Subjective Data
Subjective Data
Date of Service: September 23, 2023
Patient seen and examined at bedside with Dr. Jones. Pain improving. drier tender naphthalene at drain site. Denies n/v. Hungry. Passing flatus/stools.
Objective Data
-
Vital Signs
Temp Pulse Resp BP Pulse Ox
98.8 F 104 16 114/73 94
09/23/23 07:25 09/23/23 07:25 09/23/23 07:25 09/23/23 07:25 09/23/23 07:25
Intake & Output
09/22/23 09/23/23 09/24/23
06:59 06:59 06:59
Intake Total 1400 / 1400 4785 / 4785 5 / 5
Output Total 35 / 35
Balance 1400 / 1400 4750 / 4750 5 / 5
Intake:
Oral fluids 2280 / 2280
IV fluids (Total) 1200 / 1200 2400 / 2400
IV piggybacks 200 / 200 100 / 100
Amount instilled into Drain (
Total)
Left Lower Abdomen Larry-
Edmond Placed in IR
Output:
Drain Output (Total) 35
Left Lower Abdomen Larry-
Edmond Placed in IR
Other:
Number of approximated MODERATE 2 4
amounts of urine
Lab Results
09/23/23 08:49
09/23/23 08:49
Physical Exam
-
General: No Acute Distress
HEENT: Grossly Normal
Abdomen: Soft, Non Distended, Tender (very minimal to llq) and Other (IR drain with SSF in bulb but yellow/purulent material in tubing)
Skin: Warm
[2023-09-23] MEDS: ROXICODONE 5 MG PO ×2 (12:53→17:55)
[2023-09-23 15:10] VITALS: BP 128/88
[2023-09-23 23:25] VITALS: BP 104/72
[2023-09-24] MEDS: ZOSYN 50 IV ×3 (01:13→14:01)
[2023-09-24] MEDS: TORADOL 10 MG IV ×4 (05:18→23:16)
--- NOTE | 2023-09-24 05:44 | PTCARENOTE ---
left hu had brown drainage. RN notified.
--- NOTE | 2023-09-24 06:45 | PTCARENOTE ---
Pt's spiked a fever overnight of 102.5, Tylenol given temp went down to 99. OPAL drainage had strong smell and 30mL of output. House SPLITTING MACHINE [employer]ER contacted and made pt NPO. Told to contact GI. Dr. Robert ling texted said to leave pt NPO and another CT scan
would be done today.
[2023-09-24 08:01] VITALS: BP 106/70
--- NOTE | 2023-09-24 08:49 | CM ---
Reviewed the chart notes. VN ordered. Referral sent to ECHO.
--- NOTE | 2023-09-24 09:30 | PN.CDI ---
CDI
- -
CDI:
Physician Documentation Request
Admit Date: 09/21/23 02:43
Dear Colorectal,
Please review the following and provide your response in the progress notes.
Clinical Indicators:
- Patient admit for acute sigmoid diverticulitis with abscess
- On 09/19 admission:
- WBC 16.8, Temp 102.3, HR 120
- IV abx Zosyn
- IVF NSS given
- Abscess culture with E coli and Streptococcus
Please clarify which of the following most accurately describes the status of the patient's infection:
Sepsis
- Systemic manifestations of infection, with 2 or more SIRS criteria which include:
- Fever >100.4 degrees F or hypothermia < 96.8 degrees F
- Leukocytosis - WBC > 12,000 or leukopenia - WBC < 4,000 or > 10% bands
- Tachycardia > 90 beats per minute
- Tachypnea - RR > 20 breaths per minute or PaCO2 , 32mmHg
Source: Merck Manual 2013
- Indicate the known or suspected organism
- Indicate the known or suspected underlying infection, such as UTI, pneumonia or cellulitis
- Indicate if a suspected bacterial infection of unknown source
- Indicate if associated with an implanted device such as a F/C, PICC line, orthopedic hardware, etc.
Localized Infection Only, Without Systemic Illness
- indicate the site/source, such as UTI, pneumonia etc.
Other
Use of terms such as suspected, likely, concern for, or probable (associated with a specific diagnosis that is being evaluated, monitored, or treated as if it exists) are acceptable and can be coded in the inpatient setting, when documented at the
time of discharge.
Thank you,
Wesley Hernandez RN
CDI Specialist
Please use your independent medical judgment in providing your response.
[2023-09-24] MEDS: NSS 1000 IV ×2 (09:42→19:48)
[2023-09-24] MEDS: ROXICODONE 5 MG PO (09:48)
[2023-09-24 11:01] LABS: Hematocrit 33.3 % (39.0-52.0); Hemoglobin 11.2 g/dL (13.0-18.0); Mean Corp Hgb Conc. 33.6 g/dL (33.0-37.0); Mean Corpuscular Hgb 29.1 pg (27.0-31.0); Mean Corpuscular Volume 86.5 fL (80.0-94.0); Mean Platelet Volume 9.5 fL (7.4-10.4); Platelet Count 426 10^3/uL (130-400); Red Blood Cell Count 3.85 10^6/uL (4.70-6.10); Red Cell Dist. Width 14.4 % (11.5-14.5)
[2023-09-24 11:31] LABS: Blood Urea Nitrogen 5 mg/dl (9-20); Calcium 8.8 mg/dl (8.4-10.2); Carbon Dioxide 24 mmol/L (22-30); Chloride 106 mmol/L (98-107); Estimated Creatinine Clearance > 125 ml/min; Glucose 90 mg/dl (70-99); Potassium 4.3 mmol/L (3.5-5.1); Sodium 139 mmol/L (135-145); eGFR > 60.00
--- NOTE | 2023-09-24 11:32 | VNURNOTE ---
Home Health Liaison met with patient and at bedside to discuss [facility] nurse visits, schedule and homebound status. Patient is agreeable and understands that visits at home will be 1-2 x per week to assess and teach medical management and drain
care. [facility] brochure provided with contact information. Patient is aware that [facility] will contact them for start of care in 1-2 days after discharge from .
[facility] referral in Care Port, VN Intake aware.
--- NOTE | 2023-09-24 11:33 | W.PN.CRS1 ---
Today's Communication / Plan
-
CT abdomen and pelvis
IR consult
N.p.o.
Assessment/Plan
-
42 yo male presenting with acute sigmoid diverticulitis with 3.3 x 4.9 x 4 cm abscess within the anterior pelvis now PPD # 3 IR drainage
WBC now 20. 0 from 18.0
Pain at drain site but otherwise pain improving
Tmax 102.5 overnight
Plan:
-N.p.o. today given worsening leukocytosis and fever
-Continue IV fluids.
-Zosyn 3.375gm q6h
-PRN Tylenol, oxycodone, morphine and scheduled Toradol
-Given leukocytosis and fever, CT abdomen and pelvis ordered. Discussed with IR. Will order IV contrast for evaluation of the pelvic abscess. He may require a new drain or upsizing of the previous drain. Explained to patient and family at
bedside. Will update once CT scan is performed and decision made.
--VNA consult as patient will be discharged with drain and need to flush
Subjective Data
Subjective Data
Date of Service: September 24, 2023
Patient states that he felt like he had some stomach cramping today. He was not feeling too well overnight. He had a temperature of 102.5. He denies nausea or vomiting.
Objective Data
-
Vital Signs
Temp Pulse Resp BP Pulse Ox
99.1 F 96 17 106/70 98
09/24/23 08:01 09/24/23 08:01 09/24/23 08:01 09/24/23 08:01 09/24/23 08:01
Intake & Output
09/23/23 09/24/23 09/25/23
06:59 06:59 06:59
Intake Total 4785 / 4785 4405 / 4405 5 / 5
Output Total 35 / 35 40 / 40
Balance 4750 / 4750 4365 / 4365 5 / 5
Intake:
Oral fluids 2280 / 2280 1800 / 1800
IV fluids (Total) 2400 / 2400 2400 / 2400
IV piggybacks 100 / 100 200 / 200
Amount instilled into Drain (
Total)
Left Lower Abdomen Larry-
Edmond Placed in IR
Output:
Drain Output (Total)
Left Lower Abdomen Larry-
Edmond Placed in IR
Other:
Number of approximated MODERATE 4 1
amounts of urine
Number of approximated LARGE 4
amounts of urine
Lab Results
09/24/23 09:57
09/24/23 09:57
Physical Exam
-
General: No Acute Distress and AOx3
Abdomen: Soft, Non Distended, Tender (Left lower quadrant) and Other (OPAL drain in place with purulent output mixed with serosanguineous)
[2023-09-24] MEDS: TYLENOL 1000 MG PO ×2 (13:05→19:47)
--- NOTE | 2023-09-24 13:52 | W.PN.UPDATE ---
Update Note
Progress Note Update
CT scan was discussed with Dr. Del Castillo and Dr. Engle of radiology. There is inflammatory change around the sigmoid related to diverticulitis. There is air in the subcutaneous tissue but is not drainable and there is no residual abscess. There
is likely a fistula due to the feculent output. Given these findings, we will continue the IR drain. Will start patient back on a diet. No role for surgery at this time. Also given rising WBC, we have consulted infectious disease for tweaking of
antibiotics. This was discussed above with the patient via telephone.
[2023-09-24 15:40] VITALS: BP 123/86
--- NOTE | 2023-09-24 16:07 | CON.ID ---
Consultation
-
Date/Time Consultation Requested: 09/24/2023 1339
Date/Time Consultation Performed: 09/24/2023 1607
Requesting Provider: Sandy Gomez
Performing Provider: Dr. Jang
Reason for Consultation: Leukocytosis
Chief Complaint / Past History
History of Present Illness
Ashwin Pettit is a 42-year-old man being evaluated at the request of Sandy Gomez regarding leukocytosis. History is obtained from chart review, along with patient interview.
Patient initially presented to the emergency room at [facility] on 09/14/2023 following the development of abdominal pain over the prior 2 and half hours. This was associated with 4 bouts of diarrhea. Imaging in the ER revealed acute
uncomplicated sigmoid diverticulitis, and the patient was discharged to home on Augmentin. He presented back the next day secondary to ongoing abdominal discomfort, but the patient was again discharged to home to continue with Augmentin.
He again presented back to the emergency room on 09/19 noting that his abdominal pain had initially improved, only took for a worse over the past day or so. Workup in the emergency room revealed ongoing diverticulitis, but the patient now has
developed an adjacent abscess. The patient was placed on IV Zosyn and he underwent drain placement on 09/21/2023. Despite antibiotic therapy, white count has continued to rise, and Infectious Diseases asked to comment on further antimicrobial
therapy.
Currently he notes ongoing fever, stating that he wakes up with drenching sweats. He denies any headache. He admits to left lower abdominal discomfort, in the abdominal wall area. He denies any dysuria. He notes loose stool, but describes it as
mushy and not liquid.
Past History
Additional Past Medical History:
Diverticulitis
Lupus (maintained on methotrexate and hydroxychloroquine)
Additional Past Surgical History:
Inguinal hernia repair
Allergy History:
hydromorphone [From Dilaudid] Adverse Reaction (Intermediate, Verified 09/22/23 13:26)
hypotension
Medications Reviewed: Yes
Current Antibiotics:
Zosyn 3.375 g IV every 6 hours (day #3)
Social History
Tobacco: Non-Smoker
Alcohol: None
Drug: None
Personal:
Living: With Family
Employment: Employed
Family History
Family History: Not Pertinent
Review of Systems
Vital Signs
Temp Pulse Resp BP Pulse Ox
98.1 F 96 17 123/86 100
09/24/23 15:40 09/24/23 08:01 09/24/23 15:40 09/24/23 15:40 09/24/23 15:40
Physical Exam
Physical Exam
Constitutional: No Acute Distress, Comfortable and Non-toxic
Eyes: No Conjunctival Hemorrhage and Sclera Anicteric
Cardiovascular: Regular Rate and S1/S2; Negative S3/S4
Pulmonary: Clear; Negative Wheezes, Rales or Rhonchi
Gastrointestinal: Soft, Tender (left lower abdominal wall area.), Non Distended, Normal Bowel Sounds and Other (lower abdominal drain in place)
Extremities: Negative Edema, Cyanosis or Erythema
Skin: Warm and Dry; Negative Rash or Jaundice
Wound: None
Neurological: Awake and Alert
Psychological: Calm
.
Lab / Diagnostic Study Results
09/24/23 09:57
09/24/23 09:57
Abs Immat Gran (auto) 0.1 10^3/uL (0-0.05) H 09/22/23 08:20
Absolute Neuts (auto) 8.2 10^3/uL (1.4-6.5) H 09/22/23 08:20
Absolute Lymphs (auto) 1.3 10^3/uL (1.2-3.4) 09/22/23 08:20
Absolute Monos (auto) 0.8 10^3/uL (0.1-0.6) H 09/22/23 08:20
Absolute Basos (auto) 0.1 10^3/uL (0-0.2) 09/22/23 08:20
Immature Gran % 1.3 % (0-0.5) H 09/22/23 08:20
Neutrophils % 76.8 % (42.2-75.2) H 09/22/23 08:20
Lymphocytes % 11.8 % (20.5-51.1) L 09/22/23 08:20
Monocytes % 7.1 % (1.7-9.3) 09/22/23 08:20
Eosinophils % 2.5 % (0-6) 09/22/23 08:20
Basophils % 0.5 % (0-2) 09/22/23 08:20
Lactic Acid 2.1 mmol/L (0.7-2.0) H 09/20/23 19:39
Microbiology Results
Micro:
09/21/23 10:23 Wound Culture - Final
Abscess Escherichia coli
Streptococcus species
Gram Stain - Final
Imaging:
09/24/2023 CT abdomen/pelvis with contrast: A percutaneous drainage catheter is in appropriate position. No residual intra-abdominal abscess appreciated. Findings consistent with acute sigmoid diverticulitis are noted. Air is noted in the
subcutaneous tissues of the lower abdomen.
Assessment / Plan
Sigmoid diverticulitis
Intra-abdominal abscess
Leukocytosis
Fever
Hx lupus (on hydroxychloroquine/methotrexate)
Recommendations:
Will empirically transition to meropenem 500 mg IV every 6 hours.
Monitor white count and temperature curve.
Given findings on most recent CT scan, may need subsequent additional imaging to follow air noted in the subcutaneous tissue.
Follow drain output.
Monitor for any development of diarrhea.
--- NOTE | 2023-09-24 16:44 | PTCARENOTE ---
At 1300, patient stated he felt feverish. Temp at that time was 101. Tylenol given as ordered. Sandy Gomez PA-C made aware.
[2023-09-24] MEDS: STERILE WATER FOR INJECTION 10 ML IV ×2 (18:12→23:16)
[2023-09-24] MEDS: MERREM 500 MG IV ×2 (18:12→23:16)
[2023-09-24 23:13] VITALS: BP 109/70
[2023-09-25 03:44] VITALS: BP 124/77
[2023-09-25] MEDS: TYLENOL 1000 MG PO ×2 (03:44→17:30)
[2023-09-25] MEDS: STERILE WATER FOR INJECTION 10 ML IV ×3 (05:24→18:20)
[2023-09-25] MEDS: MERREM 500 MG IV ×3 (05:24→18:20)
[2023-09-25] MEDS: TORADOL 10 MG IV (05:24)
[2023-09-25 07:22] VITALS: BP 107/69
[2023-09-25] MEDS: NSS 1000 IV ×2 (07:42→17:32)
[2023-09-25 08:40] LABS: Blood Urea Nitrogen 4 mg/dl (9-20); Calcium 8.5 mg/dl (8.4-10.2); Carbon Dioxide 20 mmol/L (22-30); Chloride 109 mmol/L (98-107); Estimated Creatinine Clearance > 125 ml/min; Glucose 86 mg/dl (70-99); Potassium 3.6 mmol/L (3.5-5.1); Sodium 138 mmol/L (135-145); eGFR > 60.00
[2023-09-25 08:53] LABS: % Basophils 0.3 % (0-2); % Eosinophils 1.1 % (0-6); % Immature Granulocytes 0.7 % (0-0.5); % Lymphocytes 7.9 % (20.5-51.1); % Monocytes 6.5 % (1.7-9.3); % Neutrophils 83.5 % (42.2-75.2); Absolute Basophils 0.1 10^3/uL (0-0.2); Absolute Eosinophils 0.2 10^3/uL (0-0.7); Absolute Immature Granulocytes 0.1 10^3/uL (0-0.05); Absolute Lymphocytes 1.6 10^3/uL (1.2-3.4); Absolute Monocytes 1.3 10^3/uL (0.1-0.6); Absolute Neutrophils 16.6 10^3/uL (1.4-6.5); Hematocrit 27.9 % (39.0-52.0); Hemoglobin 9.4 g/dL (13.0-18.0); Mean Corp Hgb Conc. 33.7 g/dL (33.0-37.0); Mean Corpuscular Hgb 28.1 pg (27.0-31.0); Mean Corpuscular Volume 83.3 fL (80.0-94.0); Nucleated Red Blood Cells % 0 % (-); Red Blood Cell Count 3.35 10^6/uL (4.70-6.10); Red Cell Dist. Width 14.4 % (11.5-14.5); White Blood Cell Count 19.9 10^3/uL (4.8-10.8)
[2023-09-25] MEDS: ROXICODONE 5 MG PO (10:48)
--- NOTE | 2023-09-25 11:24 | W.PN.CRS1 ---
Today's Communication / Plan
-
Continue diet
Meropenem
Continue to monitor drain
Trend WBC
Lovenox
Assessment/Plan
-
42 yo male presenting with acute sigmoid diverticulitis with 3.3 x 4.9 x 4 cm abscess within the anterior pelvis now PPD # 4 IR drainage
WBC now 19.9 from 20.0
Pain at drain site but otherwise pain improving
Tmax 101.1
Plan:
-Continue low residue diet
-On meropenem IV per ID. Appreciate ID.
-PRN Tylenol, oxycodone, morphine and scheduled Toradol
-Will continue to hold off surgically at this time. Monitor WBC.
-DVT prophylaxis: Teds and SCDs, will add Lovenox.
--VNA consult as patient will be discharged with drain and need to flush
Subjective Data
Subjective Data
Date of Service: September 25, 2023
Patient states he feels 'not great'. Today. His energy is decreased. He is attributing this to the fevers. He has no nausea or vomiting. He has no abdominal pain. He is not that hungry. He is still having flatus and formed but irregular bowel
movements. He is sitting in a chair.
Objective Data
-
Vital Signs
Temp Pulse Resp BP Pulse Ox
98.3 F 89 16 107/69 96
09/25/23 07:22 09/25/23 07:22 09/25/23 07:22 09/25/23 07:22 09/25/23 07:22
Intake & Output
09/24/23 09/25/23 09/26/23
06:59 06:59 06:59
Intake Total 4405 / 4405 4225 / 4225
Output Total 40 / 40 40 / 40
Balance 4365 / 4365 4185 / 4185
Intake:
Oral fluids 1800 / 1800 192 / 192
IV fluids (Total) 2400 / 2400 2200 / 0
IV piggybacks 200 / 200 100 / 100
Amount instilled into Drain (
Total)
Left Lower Abdomen Larry-
Edmond Placed in IR
Output:
Drain Output (Total)
Left Lower Abdomen Larry-
Edmond Placed in IR
Other:
Number of approximated MODERATE 1 3
amounts of urine
Number of approximated LARGE 4
amounts of urine
Lab Results
09/25/23 06:43
09/25/23 06:43
Physical Exam
-
General: No Acute Distress and AOx3
Abdomen: Soft, Non Distended, Tender (Around IR drain site) and Other (Feculent output and IR [id number])
--- NOTE | 2023-09-25 11:37 | CM ---
Reviewed the chart notes and spoke with the patient at the bedside. CM continues to be available to patient/family and is monitoring medical plan for needs at discharge.
Plan: Discharge to home with [facility] services when medically stable.
--- NOTE | 2023-09-25 13:00 | W.PN.ID1 ---
Date of Service
Date of Service: September 25, 2023
Today's Communication
Continue abx. Monitor white count and temperatures. Follow clinically.
Assessment / Plan
Sigmoid diverticulitis
Intra-abdominal abscess
Abdominal wall infection
Leukocytosis
Fever
Hx lupus (on hydroxychloroquine/methotrexate)
Immunosuppression secondary to medications
Recommendations:
Continue meropenem 500 mg IV every 6 hours.
Monitor white count and temperature curve.
Given findings on most recent CT scan (gas), may need subsequent additional imaging to follow gas noted in the subcutaneous tissue.
Follow drain output.
Monitor for any development of diarrhea.
Chief Complaint
-: Fever and Leukocytosis
Subjective / Review of Systems
Patient seen and examined. Reports some ongoing lower abdominal discomfort in the abdominal wall. Notes fevers overnight.
Vital Signs / Physical Exam
Vital Signs
Vital Signs
Temp Pulse Resp BP Pulse Ox
98.4 F 89 16 107/69 96
09/25/23 12:02 09/25/23 07:22 09/25/23 07:22 09/25/23 07:22 09/25/23 07:22
Physical Exam
Constitutional: No Acute Distress, Comfortable, Non-toxic and Obese
Eyes: No Conjunctival Hemorrhage and Sclera Anicteric
Cardiovascular: S1/S2; Negative S3/S4
Pulmonary: Clear; Negative Wheezes, Rales or Rhonchi
Gastrointestinal: Tender (Left lower abdominal area), Decreased Bowel Sounds, No Rebound and No Guarding
Genito-Urinary: Negative Weinstein
Extremities: Negative Edema, Cyanosis or Erythema
Skin: Negative Rash or Jaundice
Neurological: Awake, Alert and Oriented
Psychological: Calm
Objective Data
Lab Data
Lab Results
09/25/23 06:43
09/25/23 06:43
Estimated Creat Clear > 125 ml/min 09/25/23 06:43
Lactic Acid 2.1 mmol/L (0.7-2.0) H 09/20/23 19:39
Total Bilirubin 0.4 mg/dl (0.2-1.3) 09/20/23 19:38
AST 27 U/L (17-59) 09/20/23 19:38
ALT 25 U/L (0-50) 09/20/23 19:38
Alkaline Phosphatase 76 U/L (38-126) 09/20/23 19:38
Most recent labs reviewed.
Micro Results:
09/21/23 10:23 Wound Culture - Final
Abscess Escherichia coli
Streptococcus species
Gram Stain - Final
Imaging:
09/24/2023 CT abdomen/pelvis with contrast: A percutaneous drainage catheter is in appropriate position. No residual intra-abdominal abscess appreciated. Findings consistent with acute sigmoid diverticulitis are noted. Air is noted in the
subcutaneous tissues of the lower abdomen.
Care Review
Plan reviewed with: Physician (CRS)
[2023-09-25 15:13] VITALS: BP 128/89
[2023-09-25] MEDS: LOVENOX 40 MG SC (18:21)
--- NOTE | 2023-09-25 18:51 | PTCARENOTE ---
Patient c/o feeling feverish around 1715. Temp at that time was 102.[address] Salinas made aware. Tylenol po given as ordered. Ice pack to forehead. No new orders taken.
[2023-09-25 23:25] VITALS: BP 118/83
[2023-09-26] VITALS (7 sets, daily range): BP systolic 88–153; BP diastolic 57–97
[2023-09-26] MEDS: STERILE WATER FOR INJECTION 10 ML IV ×4 (00:24→17:42)
[2023-09-26] MEDS: MERREM 500 MG IV ×4 (00:25→17:41)
[2023-09-26] MEDS: TYLENOL 1000 MG PO ×2 (00:33→17:42)
[2023-09-26] MEDS: ROXICODONE 5 MG PO (00:33)
--- NOTE | 2023-09-26 03:00 | DOWNTIME ---
There was a Feed[employer] Client [employer] Downtime on 09/26/2023 from 0100 to 09/26/2023 at 0252. Downtime documentation of patient's care, including medication administrations, has been reconciled in the electronic record per guidelines. Refer to the
patient's paper chart under the miscellaneous tab to see printed paper medication records and downtime forms.
[2023-09-26] MEDS: NSS 1000 IV ×2 (03:46→12:14)
[2023-09-26] MEDS: TORADOL 10 MG IV (07:41)
[2023-09-26 09:17] LABS: % Basophils 0.4 % (0-2); % Eosinophils 1.1 % (0-6); % Monocytes 6.8 % (1.7-9.3); % Neutrophils 81.7 % (42.2-75.2); Absolute Basophils 0.1 10^3/uL (0-0.2); Absolute Eosinophils 0.2 10^3/uL (0-0.7); Absolute Immature Granulocytes 0.2 10^3/uL (0-0.05); Absolute Lymphocytes 1.5 10^3/uL (1.2-3.4); Absolute Monocytes 1.1 10^3/uL (0.1-0.6); Absolute Neutrophils 13.7 10^3/uL (1.4-6.5); Hematocrit 31.1 % (39.0-52.0); Hemoglobin 10.5 g/dL (13.0-18.0); Mean Corp Hgb Conc. 33.8 g/dL (33.0-37.0); Mean Corpuscular Hgb 28.6 pg (27.0-31.0); Mean Corpuscular Volume 84.7 fL (80.0-94.0); Mean Platelet Volume 9.2 fL (7.4-10.4); Nucleated Red Blood Cells % 0 % (-); Platelet Count 471 10^3/uL (130-400); Red Blood Cell Count 3.67 10^6/uL (4.70-6.10); Red Cell Dist. Width 14.4 % (11.5-14.5); White Blood Cell Count 16.7 10^3/uL (4.8-10.8)
[2023-09-26 09:45] LABS: Blood Urea Nitrogen 5 mg/dl (9-20); Calcium 8.6 mg/dl (8.4-10.2); Carbon Dioxide 23 mmol/L (22-30); Chloride 107 mmol/L (98-107); Estimated Creatinine Clearance > 125 ml/min; Glucose 94 mg/dl (70-99); Sodium 139 mmol/L (135-145); eGFR > 60.00
--- NOTE | 2023-09-26 11:00 | W.PN.ID1 ---
Date of Service
Date of Service: September 26, 2023
Today's Communication
Continue abx.
Assessment / Plan
Sigmoid diverticulitis
Intra-abdominal abscess
Abdominal wall infection
Leukocytosis
Fever
Hx lupus (on hydroxychloroquine/methotrexate)
Immunosuppression secondary to medications
Recommendations:
Continue meropenem 500 mg IV every 6 hours.
Monitor white count and temperature curve.
Given findings on most recent CT scan (gas), may need subsequent additional imaging to follow gas noted in the subcutaneous tissue.
Follow drain output.
Monitor for any development of diarrhea.
Chief Complaint
-: Fever, Leukocytosis and Other (Abdominal abscess)
Subjective / Review of Systems
Patient seen and examined. Still with lower abdominal discomfort, and notes some leaking around his drainage tube. Patient reports he is now n.p.o. in anticipation of a procedure later today.
Review of Systems: No Fever and No Chills
Vital Signs / Physical Exam
Vital Signs
Vital Signs
Temp Pulse Resp BP Pulse Ox
98.5 F 89 14 121/70 98
09/26/23 07:00 09/26/23 07:00 09/26/23 07:00 09/26/23 07:00 09/26/23 08:00
Physical Exam
Constitutional: No Acute Distress, Comfortable, Non-toxic and Obese
Cardiovascular: S1/S2; Negative S3/S4
Pulmonary: Clear and Non Labored
Gastrointestinal: Tender (Left lower abdominal area), Decreased Bowel Sounds, No Rebound, No Guarding and Other (Lower abd drain with fecal material)
Genito-Urinary: Negative Weinstein
Extremities: Negative Edema, Cyanosis or Erythema
Skin: Negative Rash or Jaundice
Neurological: Awake, Alert and Oriented
Psychological: Calm
Objective Data
Lab Data
Lab Results
09/26/23 08:51
09/26/23 08:51
Estimated Creat Clear > 125 ml/min 09/26/23 08:51
Lactic Acid 2.1 mmol/L (0.7-2.0) H 09/20/23 19:39
Total Bilirubin 0.4 mg/dl (0.2-1.3) 09/20/23 19:38
AST 27 U/L (17-59) 09/20/23 19:38
ALT 25 U/L (0-50) 09/20/23 19:38
Alkaline Phosphatase 76 U/L (38-126) 09/20/23 19:38
Most recent labs reviewed.
Micro Results:
09/21/23 10:23 Wound Culture - Final
Abscess Escherichia coli
Streptococcus species
Gram Stain - Final
Imaging:
09/24/2023 CT abdomen/pelvis with contrast: A percutaneous drainage catheter is in appropriate position. No residual intra-abdominal abscess appreciated. Findings consistent with acute sigmoid diverticulitis are noted. Air is noted in the
subcutaneous tissues of the lower abdomen.
--- NOTE | 2023-09-26 11:38 | W.PN.CRS1 ---
Today's Communication / Plan
-
NPO
continue antibiotics
will reach out to IR regarding upsizing drain vs OR drainage
Assessment/Plan
-
42 yo male presenting with acute sigmoid diverticulitis with 3.3 x 4.9 x 4 cm abscess within the anterior pelvis now PPD # 5 IR drainage
WBC now 67.7 from 19.9
Pain at drain site but otherwise pain improving
Tmax 101.1
Plan:
-Back down to NPO
-Will speak to IR regarding upsizing the drain versus taking a surgery later today given abdominal wall erythema and now feculent material coming from origin of the drain. This is a localized infection to the lower abdominal wall.
-On meropenem IV per ID. Appreciate ID
-PRN oxycodone, morphine and re-add Toradol, Tylenol now standing
-Continue to monitor WBC
-DVT prophylaxis: Teds and SCDs, will add Lovenox.
--VNA consult as patient will be discharged with drain and need to flush
Subjective Data
Subjective Data
Date of Service: September 26, 2023
Patient states he is sore in his lower abdomen. He is having small bowel movements. He has no appetite. He felt feverish overnight and feels more right now.
Objective Data
-
Vital Signs
Temp Pulse Resp BP Pulse Ox
98.5 F 89 14 121/70 98
09/26/23 07:00 09/26/23 07:00 09/26/23 07:00 09/26/23 07:00 09/26/23 08:00
Intake & Output
09/25/23 09/26/23 09/27/23
06:59 06:59 06:59
Intake Total 4225 / 4225 4585 / 4585
Output Total 40 / 40
Balance 4185 / 4185 4565 / 4565
Intake:
Oral fluids 1920 / 1920 2160 / 2160
IV fluids (Total) 0 / 0 2400 / 2400
IV piggybacks 100 / 100 /
Amount instilled into Drain (
Total)
Left Lower Abdomen Larry-
Edmond Placed in IR
Output:
Drain Output (Total)
Left Lower Abdomen Larry-
Edmond Placed in IR
Other:
Number of approximated MODERATE 3 2
amounts of urine
Number of approximated LARGE 1
amounts of urine
Number of unmeasured liquid
stools
Rectum 1
Lab Results
09/26/23 08:51
09/26/23 08:51
Physical Exam
-
General: No Acute Distress and AOx3
Abdomen: Soft, Non Distended, Tender (lower abdomen around the drain, erythema on lower abdomen b/l around drain site, feculent material coming from drain site ) and Other (hu drain feculent yellow)
Skin: Warm
[2023-09-26] MEDS: TYLENOL PO (12:19)
--- NOTE | 2023-09-26 13:04 | CM ---
Reviewed the chart notes. Per notes, now NPO for IR upsizing drain vs OR drainage. CM continues to be available to patient/family and is monitoring medical plan for needs at discharge.
Plan: Discharge to home with [facility] services when medically stable.
[2023-09-26] MEDS: TORADOL 15 MG IV ×2 (13:25→17:42)
[2023-09-26] MEDS: LOVENOX 40 MG SC (17:42)
[2023-09-27] MEDS: TYLENOL 1000 MG PO ×4 (00:30→17:06)
[2023-09-27] MEDS: MERREM 500 MG IV ×4 (00:30→17:08)
[2023-09-27] MEDS: STERILE WATER FOR INJECTION 10 ML IV ×4 (00:31→17:08)
[2023-09-27] MEDS: TORADOL 15 MG IV ×4 (00:31→17:07)
[2023-09-27] MEDS: NSS 1000 IV ×3 (01:34→22:57)
[2023-09-27 07:33] VITALS: BP 120/77
[2023-09-27 09:34] LABS: % Basophils 0.6 % (0-2); % Eosinophils 2.2 % (0-6); % Immature Granulocytes 1.5 % (0-0.5); % Lymphocytes 14.4 % (20.5-51.1); % Monocytes 6.2 % (1.7-9.3); % Neutrophils 75.1 % (42.2-75.2); Absolute Basophils 0.1 10^3/uL (0-0.2); Absolute Eosinophils 0.2 10^3/uL (0-0.7); Absolute Immature Granulocytes 0.2 10^3/uL (0-0.05); Absolute Lymphocytes 1.6 10^3/uL (1.2-3.4); Absolute Monocytes 0.7 10^3/uL (0.1-0.6); Absolute Neutrophils 8.1 10^3/uL (1.4-6.5); Hematocrit 33.5 % (39.0-52.0); Hemoglobin 11.1 g/dL (13.0-18.0); Mean Corp Hgb Conc. 33.1 g/dL (33.0-37.0); Mean Corpuscular Hgb 28.1 pg (27.0-31.0); Mean Corpuscular Volume 84.8 fL (80.0-94.0); Mean Platelet Volume 8.9 fL (7.4-10.4); Nucleated Red Blood Cells % 0 % (-); Platelet Count 550 10^3/uL (130-400); Red Blood Cell Count 3.95 10^6/uL (4.70-6.10); Red Cell Dist. Width 14.3 % (11.5-14.5); White Blood Cell Count 10.8 10^3/uL (4.8-10.8)
[2023-09-27 09:56] LABS: Blood Urea Nitrogen 6 mg/dl (9-20); Carbon Dioxide 26 mmol/L (22-30); Chloride 107 mmol/L (98-107); Estimated Creatinine Clearance > 125 ml/min; Glucose 88 mg/dl (70-99); Potassium 4.5 mmol/L (3.5-5.1); Sodium 144 mmol/L (135-145); eGFR > 60.00
[2023-09-27] MEDS: FLUSH (NSS) 1 FLUSH IV ×2 (12:23→17:10)
--- NOTE | 2023-09-27 12:29 | W.PN.ID1 ---
Date of Service
Date of Service: September 27, 2023
Today's Communication
Continue antibiotics
Assessment / Plan
Sigmoid diverticulitis
Intra-abdominal abscess
Abdominal wall infection
Leukocytosis
Fever
Hx lupus (on hydroxychloroquine/methotrexate)
Immunosuppression secondary to medications
Recommendations:
Continue meropenem 500 mg IV every 6 hours.
Monitor white count and temperature curve.
Follow drain output.
Monitor for any development of diarrhea.
����������������������������������������������������������
Chief Complaint
-: Fever, Leukocytosis and Other (Abdominal abscess)
Subjective / Review of Systems
Patient seen and examined. Feeling somewhat improved today. Notes less discomfort in the abdomen. OPAL has been transition to gravity drain.
Review of Systems: No Fever
Vital Signs / Physical Exam
Vital Signs
Vital Signs
Temp Pulse Resp BP Pulse Ox
98.4 F 80 15 120/77 99
09/27/23 07:33 09/27/23 07:33 09/27/23 07:33 09/27/23 07:33 09/27/23 07:33
Physical Exam
Constitutional: No Acute Distress, Comfortable, Non-toxic and Obese
Eyes: Sclera Anicteric
Cardiovascular: S1/S2; Negative S3/S4
Pulmonary: Clear and Non Labored
Gastrointestinal: Tender (Left lower abdominal area), Decreased Bowel Sounds, No Rebound, No Guarding and Other (Lower abd drain with fecal material)
Genito-Urinary: Negative Weinstein
Extremities: Negative Edema, Cyanosis or Erythema
Skin: Negative Rash or Jaundice
Neurological: Awake, Alert and Oriented
Psychological: Calm
Objective Data
Lab Data
Lab Results
09/27/23 09:03
09/27/23 09:03
Estimated Creat Clear > 125 ml/min 09/27/23 09:03
Lactic Acid 2.1 mmol/L (0.7-2.0) H 09/20/23 19:39
Total Bilirubin 0.4 mg/dl (0.2-1.3) 09/20/23 19:38
AST 27 U/L (17-59) 09/20/23 19:38
ALT 25 U/L (0-50) 09/20/23 19:38
Alkaline Phosphatase 76 U/L (38-126) 09/20/23 19:38
Most recent labs reviewed.
Micro Results:
09/21/23 10:23 Wound Culture - Final
Abscess Escherichia coli
Streptococcus species
Gram Stain - Final
Imaging:
09/24/2023 CT abdomen/pelvis with contrast: A percutaneous drainage catheter is in appropriate position. No residual intra-abdominal abscess appreciated. Findings consistent with acute sigmoid diverticulitis are noted. Air is noted in the
subcutaneous tissues of the lower abdomen.
--- NOTE | 2023-09-27 12:53 | W.PN.CRS1 ---
Today's Communication / Plan
-
low residue
antibiotics
continue drain
Assessment/Plan
-
42 yo male presenting with acute sigmoid diverticulitis with 3.3 x 4.9 x 4 cm abscess within the anterior pelvis now PPD # 6 IR drainage
WBC now 10.8, first time normalized
Pain at drain site but otherwise pain improving
Afebrile last night and today
09/25- IR drain underwent abscessogram, drain not upsized
Plan:
-Start back on low residue.
-Will hold of on surgery at this time. Erythema has improved, will continue treating with drain/abx.
-On meropenem IV per ID. Appreciate ID
-PRN oxycodone, morphine and re-add Toradol, Tylenol now standing
-Continue to monitor WBC - now normalized
-DVT prophylaxis: Teds and SCDs, will add Lovenox.
--VNA consult as patient will be discharged with drain and need to flush
Subjective Data
Subjective Data
Date of Service: September 27, 2023
Patient states he had night sweats again. He has decreased abdominal pain. He was afebrile overnight. Overall he feels about the same in his energy levels. He doesn't have much of an appetite. He still has bowel function.
Objective Data
-
Vital Signs
Temp Pulse Resp BP Pulse Ox
98.4 F 80 15 120/77 99
09/27/23 07:33 09/27/23 07:33 09/27/23 07:33 09/27/23 07:33 09/27/23 07:33
Intake & Output
09/26/23 09/27/23 09/28/23
06:59 06:59 06:59
Intake Total 4585 / 4585 2670 / 2670
Output Total
Balance 4565 / 4565 2650 / 2650
Intake:
Oral fluids 2160 / 2160 240 / 240
IV fluids (Total) 2400 / 2400 2400 / 2400
IV piggybacks
Amount instilled into Drain (
Total)
Left Lower Abdomen Larry-
Edmond Placed in IR
Lower Abdomen
Output:
Drain Output (Total)
Left Lower Abdomen Larry-
Edmond Placed in IR
Lower Abdomen
Other:
Number of approximated MODERATE 2 2
amounts of urine
Number of approximated LARGE 1
amounts of urine
Number of unmeasured liquid
stools
Rectum 1
Lab Results
09/27/23 09:03
09/27/23 09:03
Physical Exam
-
General: No Acute Distress and AOx3
Abdomen: Soft, Non Distended, Tender (mild around the drain) and Other (erythema in the lower abdominal aspect, bilateral. improving. IR drain in place, some drainage around the tube, pus (yellow/green) in output. )
[2023-09-27 15:22] VITALS: BP 129/88
[2023-09-27] MEDS: LOVENOX 40 MG SC (17:06)
[2023-09-27 23:30] VITALS: BP 119/77
[2023-09-28] MEDS: TYLENOL 1000 MG PO ×3 (00:06→12:57)
[2023-09-28] MEDS: TORADOL 15 MG IV ×3 (00:07→12:57)
[2023-09-28] MEDS: MERREM 500 MG IV ×2 (00:07→05:50)
[2023-09-28] MEDS: STERILE WATER FOR INJECTION 10 ML IV ×2 (00:07→05:51)
[2023-09-28 07:56] VITALS: BP 137/87
--- NOTE | 2023-09-28 10:27 | W.PN.CRS1 ---
Today's Communication / Plan
-
Continue antibiotics
Continue diet
Erythema improving
Hopefully discharge in the next day or 2 and plan for robotic surgery in the future
Assessment/Plan
-
42 yo male presenting with acute sigmoid diverticulitis with 3.3 x 4.9 x 4 cm abscess within the anterior pelvis now PPD # 7 IR drainage
WBC 10.8, first time normalized yesterday
Pain at drain site and erythema improving
Afebrile last night and today
09/25- IR drain underwent abscessogram, drain not upsized
Plan:
-Continue low residue diet
-Will hold of on surgery at this time. Erythema has improved, will continue treating with drain/abx.
-On meropenem IV per ID. Appreciate ID. Planning for long-term antibiotics.
-PRN oxycodone, morphine and re-add Toradol, Tylenol now standing
-Continue to monitor WBC - now normalized
-DVT prophylaxis: Teds and SCDs, will add Lovenox.
--VNA consult as patient will be discharged with drain and need to flush
-Possible discharge today if not likely tomorrow. Patient is doing well. Will coordinate with ID regarding IV antibiotics. Plan is for outpatient management and eventual robotic surgery.
Subjective Data
Subjective Data
Date of Service: September 28, 2023
Patient states that he has less pain. He feels a lot better since yesterday. He is having more formed stools that are still loose. He has no nausea or vomiting.
Objective Data
-
Vital Signs
Temp Pulse Resp BP Pulse Ox
98.5 F 84 15 137/87 99
09/28/23 07:56 09/28/23 07:56 09/28/23 07:56 09/28/23 07:56 09/28/23 07:56
Intake & Output
08/22/24 08/23/24 08/24/24
06:59 06:59 06:59
Intake Total 2670 / 2670 3980 / 3980
Output Total
Balance 2650 / 2650 3980 / 3980
Intake:
Oral fluids 240 / 240 1560 / 1560
IV fluids (Total) 2400 / 2400 2400 / 2400
IV piggybacks
Amount instilled into Drain (
Total)
Left Lower Abdomen Larry- 5
Edmond Placed in IR
Lower Abdomen 5
Output:
Drain Output (Total)
Lower Abdomen
Other:
Number of approximated MODERATE 2 2
amounts of urine
Lab Results
09/27/23 09:03
09/27/23 09:03
Physical Exam
-
General: No Acute Distress and AOx3
Abdomen: Soft, Tender (Very mild around drain site) and Other (IR drain is feculent, erythema on bilateral lower abdominal area has much improved)
--- NOTE | 2023-09-28 12:00 | W.PN.ID1 ---
Date of Service
Date of Service: September 28, 2023
Today's Communication
Continue abx.
Assessment / Plan
Sigmoid diverticulitis
Intra-abdominal abscess
Abdominal wall infection
Leukocytosis
Fever
Hx lupus (on hydroxychloroquine/methotrexate)
Immunosuppression secondary to medications
Recommendations:
WBC improved. Fevers improved.
Consolidate to ertapenem 1 g IV every 24 hours.
Patient will require an additional [address] PICC line and place home infusion sheet on paper chart.
Will follow-up as an outpatient.
����������������������������������������������������������
Chief Complaint
-: Fever, Leukocytosis and Other (Abdominal abscess)
Subjective / Review of Systems
Patient seen and examined. Continues to have some degree of abdominal wall discomfort. Drain continues to drain fecal material.
Review of Systems: No Fever and No Chills
Vital Signs / Physical Exam
Vital Signs
Vital Signs
Temp Pulse Resp BP Pulse Ox
98.5 F 84 15 137/87 99
09/28/23 07:56 09/28/23 07:56 09/28/23 07:56 09/28/23 07:56 09/28/23 07:56
Physical Exam
Constitutional: No Acute Distress, Comfortable, Non-toxic and Obese
Eyes: Sclera Anicteric
Cardiovascular: S1/S2; Negative S3/S4
Pulmonary: Clear and Non Labored
Gastrointestinal: Tender (Left lower abdominal area), Decreased Bowel Sounds, No Rebound, No Guarding and Other (Lower abd gravity drain with fecal material)
Genito-Urinary: Negative Weinstein
Extremities: Negative Edema, Cyanosis or Erythema
Skin: Negative Rash or Jaundice
Neurological: Awake, Alert and Oriented
Psychological: Calm
Objective Data
Lab Data
Lab Results
09/27/23 09:03
09/27/23 09:03
Estimated Creat Clear > 125 ml/min 09/27/23 09:03
Lactic Acid 2.1 mmol/L (0.7-2.0) H 09/20/23 19:39
Total Bilirubin 0.4 mg/dl (0.2-1.3) 09/20/23 19:38
AST 27 U/L (17-59) 09/20/23 19:38
ALT 25 U/L (0-50) 09/20/23 19:38
Alkaline Phosphatase 76 U/L (38-126) 09/20/23 19:38
Most recent labs reviewed.
Micro Results:
09/21/23 10:23 Wound Culture - Final
Abscess Escherichia coli
Streptococcus species
Gram Stain - Final
Imaging:
09/24/2023 CT abdomen/pelvis with contrast: A percutaneous drainage catheter is in appropriate position. No residual intra-abdominal abscess appreciated. Findings consistent with acute sigmoid diverticulitis are noted. Air is noted in the
subcutaneous tissues of the lower abdomen.
Care Review
Plan reviewed with: Physician (CRS)
[2023-09-28] MEDS: INVANZ 60 MG IV (12:56)
[2023-09-28] MEDS: FLUSH (NSS) 3 FLUSH IV (12:58)
--- NOTE | 2023-09-28 14:03 | CM ---
Addendum entered by Audrey Cowan RN 09/28/23 15:31:
Krista GUTIERREZ with [facility] in to educate the patient on administration of medication. Copay is $150 per RN visit, medication covered at 100%. Patient agreeable. Patient's spouse will provide transportation home today.
Original Note:
Reviewed the chart notes. Faxed clinicals and Rx to [facility] for review and cost analysis. CM continues to be available to patient/family and is monitoring medical plan for needs at discharge.
Plan: Discharge to home on IV abx. Midline to be placed. [facility] will follow for drain care.
[2023-09-28 15:30] VITALS: BP 126/81
--- NOTE | 2023-09-28 16:41 | W.DS.TRANS ---
DC Summary - Cover Seamer
-
Discharge Instructions:
Discharge Diagnosis/Procedures Sigmoid diverticulitis with associated abscess
status post IR drain placement
Diet Low Residue
Activity As tolerated
Driving Restrictions As prior to admission
Bathing Restrictions OK to Shower
Wound Care Daily flushes with IR drain. Record output
daily. Flush IR drain with 5cc of saline daily.
Continue your IV infusions for antibiotics per
infectious disease
Instructions: Low Fiber Diet
Stand-Alone Forms:
Changes to Home Medications: No
Discharge Medications:
DC Medications w/original date entered in [employer]
cholecalciferol (vitamin D3) 50 mcg (2,000 unit) tablet 2,000 unit PO DAILY Supplement 08/16/17
albuterol sulfate 90 mcg/actuation aerosol inhaler 2 puff inhalation R Q6HPRN PRN sob 01/01/23
amlodipine 5 mg tablet 5 mg PO DAILY Blood Pressure 01/01/23
hydroxychloroquine 200 mg tablet (Plaquenil) 400 mg PO HS lupus 01/01/23
levocetirizine 5 mg tablet (Xyzal) 5 mg PO HS Allergies 01/01/23
omeprazole 40 mg capsule,delayed release 40 mg PO DAILY Gastrointestinal Issue 01/01/23
vitamin B complex 1 tab PO DAILY Supplement 01/01/23
oxycodone 5 mg tablet 5 mg PO Q8H PRN Pain #10 tabs 09/15/23
Aleve 09/23/23
folic acid DAILY 09/23/23
methotrexate WEEKLY Lupus 09/23/23
Ertapenem [Invanz] 1,000 mg 120 mls/hr IV Q24H 09/28/23
hydrocodone 5 mg-acetaminophen 325 mg tablet 1 tab PO Q6H PRN Pain #20 tabs 09/28/23
sodium chloride 0.9 % (flush) (Normal Saline Flush 0.9 % injection syringe) 5 ml intra-catheter DAILY 30 days #5 mL 09/28/23
Home Medication Changes
Pending Results: No
== END 2023-09-28 14:35 | disposition home health service (06) | DRG 392 ==
LOC: 2 SOUTH 02:43
PROVIDERS: Emergency Medicine; Nurse Practitioner Gerontology; Physician Assistant; Radiology Vascular & Interventional Radiology; Registered Nurse; ADMITTING PHYSICIAN Surgery; CONSULT PHYSICIAN Internal Medicine Infectious Disease; EMERGENCY PHYSICIAN Emergency Medicine; FAMILY PHYSICIAN Family Medicine
PROC: 0W9J30Z Drainage of Pelvic Cavity with Drainage Device, Percutaneous Approach (ICD-10-PCS; 2023-09-21)
DX: K57.20 Diverticulitis of large intestine with perforation and abscess without bleeding (principal); D84.821 Immunodeficiency due to drugs; T81.49XA Infection following a procedure, other surgical site, initial encounter; L03.311 Cellulitis of abdominal wall; K21.9 Gastro-esophageal reflux disease without esophagitis; I10 Essential (primary) hypertension; M32.9 Systemic lupus erythematosus, unspecified; B96.20 Unspecified Escherichia coli [E. coli] as the cause of diseases classified elsewhere; B95.5 Unspecified streptococcus as the cause of diseases classified elsewhere; Z79.2 Long term (current) use of antibiotics; Z88.5 Allergy status to narcotic agent; Z79.631 Long term (current) use of antimetabolite agent
CPT/HCPCS: 49406; 49424; 74177; 76080; 80048; 80053; 81003; 83605; 85025; 85027; 87070; 87077; 87186; 87205; 93005; 96365; 96375; 99152; 99153; 99285; J1335; Q9967

== ENCOUNTER → 2023-10-10 07:41 | Outpatient (REF) | payer OTHER, SELFPAY ==
[2023-10-10 08:52] VITALS: BP 128/77; BP_SYST 76
== END ==
LOC: RADI 07:41
PROVIDERS: ATTENDING PHYSICIAN Radiology Diagnostic Radiology; FAMILY PHYSICIAN Family Medicine
DX: Z46.82 Encounter for fitting and adjustment of non-vascular catheter (principal); K57.20 Diverticulitis of large intestine with perforation and abscess without bleeding
CPT/HCPCS: 49424; 76080

== ENCOUNTER 2023-11-07 05:59 | Inpatient (IN) | payer OTHER, SELFPAY ==
[2023-11-02 09:57] VITALS: BMI 36.6
[2023-11-02 10:48] LABS: Hematocrit 40.8 % (39.0-52.0); Hemoglobin 13.5 g/dL (13.0-18.0); Mean Corp Hgb Conc. 33.1 g/dL (33.0-37.0); Mean Corpuscular Hgb 28.7 pg (27.0-31.0); Mean Corpuscular Volume 86.6 fL (80.0-94.0); Mean Platelet Volume 11.2 fL (7.4-10.4); Platelet Count 210 10^3/uL (130-400); Red Blood Cell Count 4.71 10^6/uL (4.70-6.10); Red Cell Dist. Width 15.1 % (11.5-14.5); White Blood Cell Count 3.5 10^3/uL (4.8-10.8)
[2023-11-02 10:59] LABS: INR 1.02; PT 13.2 Sec (11.4-14.6)
[2023-11-02 11:00] LABS: APTT 35.1 Sec (23.4-35.0)
[2023-11-02 11:16] LABS: Glycohemoglobin (HgbA1c) 5.4 % (4.0-5.6)
[2023-11-02 11:24] LABS: ALT (SGPT) 32 U/L (0-50); AST (SGOT) 29 U/L (17-59); Albumin 4.6 g/dl (3.5-5.0); Alkaline Phosphatase 74 U/L (38-126); Blood Urea Nitrogen 9 mg/dl (9-20); Calcium 9.6 mg/dl (8.4-10.2); Carbon Dioxide 25 mmol/L (22-30); Chloride 103 mmol/L (98-107); Estimated Creatinine Clearance > 125 ml/min; Glucose 87 mg/dl (70-99); Potassium 4.4 mmol/L (3.5-5.1); Sodium 143 mmol/L (135-145); Total Bilirubin 0.8 mg/dl (0.2-1.3); Total Protein 7.5 g/dl (6.3-8.2); eGFR > 60.00
[2023-11-07] VITALS (12 sets, daily range): BP systolic 108–131; BP diastolic 68–83; BMI 36.6
[2023-11-07] MEDS: ENTEREG 12 MG PO (06:31)
[2023-11-07] MEDS: TYLENOL 1000 MG PO (06:31)
[2023-11-07] MEDS: HEPARIN 5000 UNITS SC (06:32)
[2023-11-07] MEDS: NORMOSOL-R/PLASMALYTE-A 1000 IV ×3 (06:34→21:18)
[2023-11-07] MEDS: EMEND 40 MG PO (07:08)
--- NOTE | 2023-11-07 14:09 | W.IMMPOSTOP ---
Surgical Immed Post Op Note
-
Primary Surgeon: Elpidio Jones MD
Assistants: Doris RANKIN, Ashwin RANKIN, and Lacey ROMERO
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
Post-op Diagnosis: same
Procedure Performed: Cystoscopy with bilateral ureteral stents/ICG by Dr. Lauren
Robotic sigmoid colectomy with intracorporeal anastomosis
Takedown of splenic flexure
Anesthesia Type: GET
Specimen / Cultures: Sigmoid colon (suture is proximal)
Estimated Blood Loss: 40cc
Complications: none
Operative Findings: Fistula from diverticulitis
28 mm EEA
Normal leak test
Patient's family updated in waiting room.
[2023-11-07] MEDS: TORADOL 15 MG IV ×2 (15:09→20:35)
--- NOTE | 2023-11-07 16:12 | PTCARENOTE ---
Pt received from PACU s/p robotic sigmoid colectomy. Pt AAOx3. VSS. Procedural sites across abdomen CDI, surgical adhesive present. Weinstein with L ureteral stent maintained. Tolerating clear liquids, passed swallow screen. IVF infusing per order. Pt
resting in bed, at bedside. No complaints of pain at this time.
[2023-11-07] MEDS: TYLENOL 650 MG PO ×3 (16:37→23:59)
[2023-11-07] MEDS: PLAQUENIL 400 MG PO (21:27)
[2023-11-07] MEDS: ZYRTEC 10 MG PO (21:27)
[2023-11-07] MEDS: PROTONIX 40 MG PO (21:27)
[2023-11-08] MEDS: TORADOL 15 MG IV ×4 (02:49→21:48)
[2023-11-08] MEDS: TYLENOL 650 MG PO ×5 (03:39→20:16)
[2023-11-08 04:00] VITALS: BP 110/67
[2023-11-08 06:00] VITALS: BMI 36.6
[2023-11-08] MEDS: DILAUDID 0.5 MG IV (06:13)
[2023-11-08 06:59] VITALS: BP 100/68
[2023-11-08 08:24] VITALS: BP 124/57
[2023-11-08] MEDS: ENTEREG 12 MG PO ×2 (08:26→20:16)
[2023-11-08] MEDS: NORVASC 5 MG PO (08:26)
--- NOTE | 2023-11-08 09:01 | W.PN.CRS1 ---
Today's Communication / Plan
-
Ureteral stent and Weinstein catheter removal.
Advance diet as tolerated.
Lovenox.
Ambulate.
Assessment/Plan
-
POD#1 Robotic sigmoid resection with takedown of splenic flexure for diverticulitis with a fistula
I reviewed the operative findings with the patient and his family.
No postoperative concerns.
I removed the remaining ureteral stent (intact) and there is no blood in the urine, so the Weinstein catheter was also removed.
Clear liquids and advance once his bowel function returns.
I encouraged him to ambulate today.
Lovenox, SCDs and ambulation for DVT prophylaxis.
Subjective Data
Procedure
11/07/23 Robotic sigmoid resection with takedown of splenic flexure for diverticulitis with a fistula
Subjective Data
Date of Service: November 08, 2023
His only complaint is fatigue. He has little to no pain and his appetite is normal. He has not passed any flatus.
Objective Data
-
Vital Signs
Temp Pulse Resp BP Pulse Ox
98.4 F 82 16 124/57 95
11/08/23 06:59 11/08/23 06:59 11/08/23 06:59 11/08/23 08:26 11/08/23 06:59
Intake & Output
11/07/23 11/08/23 11/09/23
06:59 06:59 06:59
Intake Total 1640 / 1640
Output Total 1650 / 1650
Balance -
Intake:
Oral fluids 1440 / 1440
IV fluids (Total) 200 / 200
Normosol 200 / 200
Output:
Urine, Weinstein 1650 / 1650
Physical Exam
-
General: No Acute Distress
Abdomen: Soft, Non Distended and Non Tender
Extremities: No Edema and No Calf Tenderness
Incision: Clear, Dry, Intact
[2023-11-08 09:04] LABS: % Basophils 0.1 % (0-2); % Immature Granulocytes 0.4 % (0-0.5); % Monocytes 5.8 % (1.7-9.3); % Neutrophils 88.7 % (42.2-75.2); Absolute Immature Granulocytes 0.1 10^3/uL (0-0.05); Absolute Lymphocytes 0.7 10^3/uL (1.2-3.4); Absolute Monocytes 0.8 10^3/uL (0.1-0.6); Absolute Neutrophils 11.5 10^3/uL (1.4-6.5); Hematocrit 32.4 % (39.0-52.0); Hemoglobin 10.8 g/dL (13.0-18.0); Mean Corp Hgb Conc. 33.3 g/dL (33.0-37.0); Mean Corpuscular Volume 83.9 fL (80.0-94.0); Mean Platelet Volume 10.7 fL (7.4-10.4); Nucleated Red Blood Cells % 0 % (-); Platelet Count 254 10^3/uL (130-400); Red Blood Cell Count 3.86 10^6/uL (4.70-6.10); Red Cell Dist. Width 15.2 % (11.5-14.5)
[2023-11-08 09:16] LABS: Blood Urea Nitrogen 8 mg/dl (9-20); Calcium 8.4 mg/dl (8.4-10.2); Carbon Dioxide 22 mmol/L (22-30); Chloride 103 mmol/L (98-107); Estimated Creatinine Clearance > 125 ml/min; Glucose 105 mg/dl (70-99); Sodium 139 mmol/L (135-145); eGFR > 60.00
--- NOTE | 2023-11-08 09:21 | PTCARENOTE ---
lundberg and ureteral stent removed by surgeon at bedside. orders placed for advancement of diet. pt requesting walker just incase for ambulation.
[2023-11-08 11:12] VITALS: BP 110/73
[2023-11-08] MEDS: NORMOSOL-R/PLASMALYTE-A IV (12:47)
--- NOTE | 2023-11-08 14:25 | CM ---
Reviewed the chart notes and spoke with the patient at the bedside. The patient resides with his spouse and daughter in a mobile home with three steps to enter. The patient reports no DME/SNF, but has had [facility] in the past along with [facility].
The patient confirmed his pharmacy of choice is [facility]. CM continues to be available to patient/family and is monitoring medical plan for needs at discharge.
Plan: Discharge to home when medically stable.
[2023-11-08 15:14] VITALS: BP 119/69
[2023-11-08] MEDS: LOVENOX 40 MG SC (18:22)
[2023-11-08] MEDS: ZYRTEC 10 MG PO (21:49)
[2023-11-08] MEDS: PLAQUENIL 400 MG PO (21:50)
[2023-11-08] MEDS: ROXICODONE 5 MG PO (21:50)
[2023-11-08] MEDS: PROTONIX 40 MG PO (21:50)
[2023-11-08 23:16] VITALS: BP 112/66
[2023-11-09] MEDS: TYLENOL 650 MG PO ×5 (00:44→16:15)
[2023-11-09] MEDS: TORADOL 15 MG IV ×3 (03:48→15:22)
[2023-11-09 05:04] VITALS: BMI 37.0
[2023-11-09 07:00] VITALS: BP 104/66
[2023-11-09 07:34] LABS: Hematocrit 30.8 % (39.0-52.0); Hemoglobin 10.1 g/dL (13.0-18.0); Mean Corp Hgb Conc. 32.8 g/dL (33.0-37.0); Mean Corpuscular Hgb 27.7 pg (27.0-31.0); Mean Corpuscular Volume 84.4 fL (80.0-94.0); Mean Platelet Volume 10.5 fL (7.4-10.4); Platelet Count 234 10^3/uL (130-400); Red Blood Cell Count 3.65 10^6/uL (4.70-6.10); Red Cell Dist. Width 15.2 % (11.5-14.5); White Blood Cell Count 9.2 10^3/uL (4.8-10.8)
[2023-11-09 08:10] LABS: Blood Urea Nitrogen 10 mg/dl (9-20); Calcium 8.3 mg/dl (8.4-10.2); Carbon Dioxide 28 mmol/L (22-30); Chloride 104 mmol/L (98-107); Estimated Creatinine Clearance > 125 ml/min; Glucose 88 mg/dl (70-99); Sodium 140 mmol/L (135-145); eGFR > 60.00
[2023-11-09] MEDS: ENTEREG 12 MG PO (08:47)
[2023-11-09] MEDS: NORVASC 5 MG PO (08:50)
--- NOTE | 2023-11-09 10:24 | W.PN.CRS1 ---
Addendum entered and electronically signed by Sandy Gomez PA-C 11/10/23 12:06:
The drop in hemoglobin from 13.5 to 10.1 was likely due to diluational anemia
Original Note:
Today's Communication / Plan
-
Low residue diet
Discharge if tolerates
Assessment/Plan
-
POD# 2 robotic sigmoid resection with takedown of splenic flexure for diverticulitis with a fistula
-Okay to advance to a regular diet
-Up and out of bed as tolerated
-Lovenox, SCDs and ambulation for DVT prophylaxis
-If tolerates a low residue diet, can be discharged later today. All discharge instructions discussed with the patient including medications activity levels and follow-up. All questions answered.
Subjective Data
Procedure
11/07/23 Robotic sigmoid resection with takedown of splenic flexure for diverticulitis with a fistula
Subjective Data
Date of Service: November 09, 2023
Patient states he feels well. His pain is controlled. He is having bowel movements and gas. He has been tolerating a diet and is hungry for more. He has no complaints.
Objective Data
-
Vital Signs
Temp Pulse Resp BP Pulse Ox
98.4 F 82 16 113/72 96
11/09/23 07:00 11/09/23 08:50 11/09/23 07:00 11/09/23 08:50 11/09/23 07:00
Intake & Output
11/08/23 11/09/23 11/10/23
06:59 06:59 06:59
Intake Total 1640 / 1640 1460 / 1460
Output Total 1650 / 1650
Balance -10 / -10 1460 / 1460
Intake:
Oral fluids 1440 / 1440 960 / 960
IV fluids (Total) 200 / 200 500 / 500
Normosol 200 / 200
Output:
Urine, Weinstein 1650 / 1650
Other:
Number of approximated MODERATE 2
amounts of urine
Number of unmeasured liquid
stools
Rectum 1
Lab Results
11/09/23 06:46
11/09/23 06:46
Physical Exam
-
General: No Acute Distress and AOx3
Abdomen: Soft, Non Distended and Tender (Mild around incisions)
Skin: Warm and Dry
Incision: Clear, Dry, Intact
--- NOTE | 2023-11-09 11:35 | CM ---
met with patient at bedside.patient is pod#2 robo sigmoid resection and takedown of splenic flexure,advancing to low residue diet,passing gas.if tolerates lr diet can dc home with no needs today.
--- NOTE | 2023-11-09 12:22 | W.DS.TRANS ---
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
-
Discharge Instructions:
Sleep Apnea Risk Intermediate
Discharge Diagnosis/Procedures Robotic sigmoid colectomy with takedown of
splenic flexure and
intracorporeal anastomosis.
Diet Low Residue
Activity No strenuous activity
Additional Activity No lifting over 10 pounds (gallon of milk)
Driving Restrictions No driving for 1 week
Bathing Restrictions OK to Shower
Wound Care Allow glue to naturally fall off. Do not pick
at incisions.
Instructions: Low Fiber Diet
Stand-Alone Forms:
Changes to Home Medications: Yes
Discharge Medications:
DC Medications w/original date entered in [employer]
albuterol sulfate 90 mcg/actuation aerosol inhaler 2 puff inhalation R Q6HPRN PRN sob 01/01/23
amlodipine 5 mg tablet 5 mg PO DAILY Blood Pressure 01/01/23
hydroxychloroquine 200 mg tablet (Plaquenil) 400 mg PO HS lupus 01/01/23
levocetirizine 5 mg tablet (Xyzal) 5 mg PO HS Allergies 01/01/23
omeprazole 40 mg capsule,delayed release 40 mg PO HS Gastrointestinal Issue 01/01/23
vitamin B complex 1 tab PO DAILY Supplement 01/01/23
oxycodone 5 mg tablet 5 mg PO Q8H PRN Pain #10 tabs 09/15/23
cholecalciferol (vitamin D3) 25 mcg (1,000 unit) tablet (Vitamin D3) 25 mcg PO DAILY 10/31/23
folic acid 1 mg tablet 2 mg PO HS 10/31/23
methotrexate sodium 2.5 mg tablet 10 mg PO QWEEK 10/31/23
oxycodone 5 mg tablet 5 mg PO Q6H PRN Pain #20 tabs 11/09/23
Home Medication Changes
oxycodone 5 mg tablet 5 mg PO Q6H PRN Pain #20 tabs 11/09/23
Pending Results: Yes
Additional Pending Results:
pathology
--- NOTE | 2023-11-09 12:29 | PN.CDI ---
CDI
- -
CDI:
Physician Documentation Request
Admit Date: 11/07/23 05:59
Dear Sandy Gomez,
Patient is s/p robotic sigmoid resection with takedown of splenic flexure
H/h results including pre op
Laboratory Tests
11/02/23 11/08/23 11/09/23
09:55 06:41 06:46
Hgb 13.5 10.8 L 10.1 L
Hct 40.8 32.4 L 30.8 L
Could you please provide a diagnosis that supports the above lab abnormalities and additional evaluation, monitoring:
Acute blood loss anemia
Anemia other - please specify
Abnormal lab value clinically insignificant
Other
Use of terms such as suspected, likely, concern for, or probable (associated with a specific diagnosis that is being evaluated, monitored, or treated as if it exists) are acceptable and can be coded in the inpatient setting, when documented at the
time of discharge.
Thank you,
Saundra Azar RN, BSN
CDI Specialist
tiger text
Please use your independent medical judgment in providing your response.
--- NOTE | 2023-11-09 12:37 | W.DCSUMMARY ---
Discharge Summary
Discharge Data
Date of Admission: 11/07/23
Date of Discharge: 11/09/23
-
Pending Results: Yes
Additional Pending Results:
pathology
Hospital Course
Patient presented to [facility] on 11/07/2023 due to a scheduled robotic sigmoid resection for a fistula secondary to diverticulitis. This was performed by Dr. Jones on 11/07/2023. He tolerated the procedure well was brought to the medical
surge floor. The following day he was out of bed. His diet was started on clears and then slowly advance to low residue. On postop day 2 the patient had been tolerating a low residue diet. He had bowel function. His pain was minimal. It was
determined the patient to be discharged home. All discharge directions were discussed the patient clued medications meals and follow-up. All questions addressed.
Discharge Plan
-
Patient Disposition: Home (Routine Discharge)
Discharge Diagnosis/Procedures: Robotic sigmoid colectomy with takedown of splenic flexure and
intracorporeal anastomosis.
Condition: Good
Diet: Low Residue
Activity: No strenuous activity
Additional Activity: No lifting over 10 pounds (gallon of milk)
Driving Restrictions: No driving for 1 week
Bathing Restrictions: OK to Shower
Wound Care: Allow glue to naturally fall off. Do not pick at incisions.
Instructions: Low Fiber Diet
Referrals:
Jose Jones MD [Active] - in two weeks
Rashid Chen MD [Family Provider] -
Additional Discharge Medication Instructions: Tylenol or ibuprofen as needed for pain. Maximum dose of Tylenol is 4000 mg in 24 hours. Maximum dose of ibuprofen is 3200 mg in 24 hours.
Prescriptions:
New
oxycodone 5 mg tablet
5 mg PO Q6H PRN (Reason: Pain) Qty: 20 0RF
Continued
amlodipine 5 mg Tablet
5 mg PO DAILY
omeprazole 40 mg Capsule,Delayed Release(Dr/Ec)
40 mg PO HS
Patient Comments:
pt stopped taking due to stomach issues, wants to resume
hydroxychloroquine [Plaquenil] 200 mg Tablet
400 mg PO HS
Patient Comments:
pt stopped taking due to stomach issues, wants to resume
levocetirizine [Xyzal] 5 mg Tablet
5 mg PO HS
Rx Instructions:
pt stopped taking due to stomach issues, wants to resume
albuterol sulfate 90 mcg/actuation Hfa Aerosol Inhaler
2 puff INHALATION R Q6HPRN PRN (Reason: sob)
vitamin B complex Tablet
1 tab PO DAILY
Patient Comments:
pt stopped taking due to stomach issues, wants to resume
oxycodone 5 mg tablet
5 mg PO Q8H PRN (Reason: Pain) Qty: 10 0RF
Rx Instructions:
given in ED for stomach pain, pt said he only took 2 of the script given
methotrexate sodium 2.5 mg Tablet
10 mg PO QWEEK
folic acid 1 mg Tablet
2 mg PO HS
cholecalciferol (vitamin D3) [Vitamin D3] 25 mcg (1,000 unit) Tablet
25 mcg PO DAILY
Discharge Orders:
Discharge Patient (As Directed); Ordered 11/09/23
Ordered By: Sandy Gomez
Discharge Date and Time
Print Language: KINYARWANDA
[2023-11-09 14:31] VITALS: BP 128/77
== END 2023-11-09 16:31 | disposition home or self-care (01) | DRG 330 ==
LOC: 2 NORTH 05:59
PROVIDERS: Specialist; ADMITTING PHYSICIAN Surgery; ATTENDING PHYSICIAN Surgery; FAMILY PHYSICIAN Family Medicine
PROC: 0DTN4ZZ Resection of Sigmoid Colon, Percutaneous Endoscopic Approach (ICD-10-PCS; 2023-11-07)
PROC: 8E0W4CZ Robotic Assisted Procedure of Trunk Region, Percutaneous Endoscopic Approach (ICD-10-PCS; 2023-11-07)
PROC: 0DJD8ZZ Inspection of Lower Intestinal Tract, Via Natural or Artificial Opening Endoscopic (ICD-10-PCS; 2023-11-07)
PROC: 0T788DZ Dilation of Bilateral Ureters with Intraluminal Device, Via Natural or Artificial Opening Endoscopic (ICD-10-PCS; 2023-11-07)
DX: K57.20 Diverticulitis of large intestine with perforation and abscess without bleeding (principal); K63.2 Fistula of intestine; M32.9 Systemic lupus erythematosus, unspecified; K76.0 Fatty (change of) liver, not elsewhere classified; I10 Essential (primary) hypertension; E66.01 Morbid (severe) obesity due to excess calories; E78.2 Mixed hyperlipidemia; E55.9 Vitamin D deficiency, unspecified; K21.9 Gastro-esophageal reflux disease without esophagitis; K44.9 Diaphragmatic hernia without obstruction or gangrene; Z79.899 Other long term (current) drug therapy; Z87.19 Personal history of other diseases of the digestive system; Z88.5 Allergy status to narcotic agent; Z83.42 Family history of familial hypercholesterolemia
CPT/HCPCS: 88307; 36415; 80048; 80053; 83036; 85025; 85027; 85610; 85730; 86850; 86900; 86901; 88342; J1335

== ENCOUNTER 2024-01-16 19:55 | Inpatient (IN) | payer OTHER, SELFPAY ==
[2024-01-16 15:39] VITALS: BP 133/87
[2024-01-16 15:57] LABS: % Basophils 0.8 % (0-2); % Eosinophils 1.6 % (0-6); % Immature Granulocytes 0.3 % (0-0.5); % Lymphocytes 19.1 % (20.5-51.1); % Neutrophils 72.2 % (42.2-75.2); Absolute Basophils 0.1 10^3/uL (0-0.2); Absolute Eosinophils 0.1 10^3/uL (0-0.7); Absolute Lymphocytes 1.7 10^3/uL (1.2-3.4); Absolute Monocytes 0.5 10^3/uL (0.1-0.6); Absolute Neutrophils 6.3 10^3/uL (1.4-6.5); Hematocrit 41.2 % (39.0-52.0); Hemoglobin 13.2 g/dL (13.0-18.0); Mean Corpuscular Hgb 27.5 pg (27.0-31.0); Mean Corpuscular Volume 85.8 fL (80.0-94.0); Mean Platelet Volume 9.9 fL (7.4-10.4); Nucleated Red Blood Cells % 0 % (-); Platelet Count 234 10^3/uL (130-400); Red Cell Dist. Width 14.9 % (11.5-14.5); White Blood Cell Count 8.8 10^3/uL (4.8-10.8)
[2024-01-16 16:28] LABS: Blood Urea Nitrogen 14 mg/dl (9-20); Calcium 9.1 mg/dl (8.4-10.2); Carbon Dioxide 29 mmol/L (22-30); Chloride 103 mmol/L (98-107); Glucose 77 mg/dl (70-99); Lipase 2841 U/L (23-300); Sodium 141 mmol/L (135-145); eGFR > 60.00
[2024-01-16 18:28] VITALS: BP 118/78
--- NOTE | 2024-01-16 18:47 | ED.GENMED ---
History of Present Illness
General
Chief Complaint: Abdominal Pain
Source: patient
Exam Limitations: none
Time Seen by Provider: 01/16/24 17:58
History of Present Illness
History of Present Illness:
This is a 43 year old male that comes in with c/o upper abd pain. States that this pain started yesterday. States that he also has a headache. Denies any fever, chills, chest pain, SOB, nausea, vomiting, diarrhea, dizziness, urinary burning.
Past History
Past History
ED Past Medical History: GERD, HTN, Other (Diverticulosis, pancreatitis, lupus, connective tissue disease, ) and Other
ED Past Surgical History: Bowel resection (colorectal resection due to Fistula with abscess) and Other (L hernia repair)
Social History
Tobacco: Non-smoker
Alcohol: None
Drug: None
Personal:
Living: with family
Employment: Employed
Family History
Family History: Other (no h/o gallstones)
Review of Systems
Review of Systems
All Other Systems: ROS reviewed and negative except as documented in HPI and ROS
Constitutional: Reports no symptoms; Denies fever or chills
EENT: Reports no symptoms
Respiratory: Reports no symptoms; Denies cough or trouble breathing
Cardiac: Reports no symptoms; Denies chest pain
ABD/GI: Reports abdominal pain (Upper abd pain); Denies nausea, vomiting or diarrhea
: Reports no symptoms; Denies dysuria, frequency or urgency
Musculoskeletal: Reports no symptoms
Skin: Reports no symptoms
Neurological: Reports headache; Denies dizzy
Psychiatric: Reports no symptoms
Phy Exam
General Physical Exam
General Presentation: no apparent distress
General age: appears stated age
General Skin: warm and dry
General Habitus: normal
General Mental: alert
General Hydration: appears well hydrated
ENT Exam
ENT Exam: TM's normal, pharynx normal and neck supple
Eye Exam
Eye Exam: EOMI
Cardiovascular Exam
Cardiovascular Exam: regular rate/rhythm, no edema, no murmur and normal peripheral pulses
Pulmonary Exam
Pulmonary Exam: lungs clear, no respiratory distress, no rales, chest non tender, no crackles, no rhonchi, no wheezing and no cough
Gastrointestinal Exam
Gastrointestinal Exam: soft, no organomegaly, no pulsatile mass, non distended, tender (Epigastric and slight right upper abd tenderness with palpation) and other (Hypoactive bowel sounds)
Musculoskeletal Exam
Musculoskeletal Exam: full ROM and no edema
Skin Exam
Skin Exam: normal color, warm/dry, no rash and no petechia
Psychiatric Exam
Psychiatric Exam: normal mood/affect
Course
Orders/Labs/Results
Orders:
Orders
01/16/24 15:46
Basic Metabolic Panel Urgent
Complete Blood Count/With Diff Urgent
Lipase Urgent
Abnormal Lab Results
01/16/24
15:46
MCHC 32.0 L g/dL
(33.0-37.0)
RDW 14.9 H %
(11.5-14.5)
Lymphocytes % 19.1 L %
(20.5-51.1)
Lipase 2841 H* U/L
(23-300)
01/16/24 15:46
01/16/24 15:46
lipase elevation, otherwise normal labs
Vital Signs
Initial and Last Documented VS:
Initial Vital Signs
Temp Pulse Resp BP Pulse Ox
98.4 F 90 19 133/87 100
01/16/24 15:39 01/16/24 15:39 01/16/24 15:39 01/16/24 15:39 01/16/24 15:39
Last Documented Vital Signs
Temp Pulse Resp BP Pulse Ox
98.4 F 90 19 118/78 99
01/16/24 15:39 01/16/24 15:39 01/16/24 15:39 01/16/24 18:28 01/16/24 18:45
MDM/Problems Addressed
Differential Diagnosis Includes:
gastritis, pancreatitis
MDM/Problems Addressed:
This is a 43 year old male that comes in with c/o upper abd pain. States that he has had pancreatitis in the past and was worried. States that this strated yesterday.
Will get labs, and medicate patient for pain.
Explained to patient that he has Pancreatitis. Will admit patient.
Chronic conditions affecting care:
History of pancreatitis
Chronic conditions affecting care: Previous abdomnial surgery
Acute Exacerbation and/or Progression of Chronic Illness:
history of pancreatitis
*Pulse Oximetry
Patient hypoxic: no
*EKG
Interpreted by ED Provider?: NA
Rate: EKG- N/A
*Barbed Wire Machine Operator Interpretation
Rate: Barbed Wire Machine Operator- N/A
*Critical Care Note
Total Time (30-74mins, 75-104mins- exclusive of procedures): Not Applicable
ED Attending Note
-
Portions of this chart may have been created with voice recognition software.� Occasional wrong word or��sound alike� substitutions may have occurred due to the inherent limitations of voice recognition software.
Discharge Plan
Departure
Patient Disposition: Admit
Date of Disposition: 01/16/24
Time of Disposition: 19:08
Admit to: Med/Surg
Presentation/result/management discussed w/ accepting MD/DO: Hospitalist
Patient with high blood pressure during this ER visit?: No
Condition: Good
Covid-19: Not Applicable
Discharge Problem:
Pancreatitis
Prescriptions:
No Action
amlodipine 5 mg Tablet
5 mg PO DAILY
omeprazole 40 mg Capsule,Delayed Release(Dr/Ec)
40 mg PO HS
Patient Comments:
pt stopped taking due to stomach issues, wants to resume
hydroxychloroquine [Plaquenil] 200 mg Tablet
400 mg PO HS
Patient Comments:
pt stopped taking due to stomach issues, wants to resume
levocetirizine [Xyzal] 5 mg Tablet
5 mg PO HS
methotrexate sodium 2.5 mg Tablet
10 mg PO SA@0900,2100
cholecalciferol (vitamin D3) [Vitamin D3] 25 mcg (1,000 unit) Tablet
25 mcg PO DAILY
glycopyrrolate 1 mg Tablet
1 mg PO BID
naproxen sodium [Aleve] 220 mg Tablet
220 mg PO HSPRN PRN (Reason: mild pain)
leucovorin calcium 5 mg Tablet
15 mg PO CLARK@0900
Referrals:
Albina Ledezma MD [Family Provider] -
Interventions
Interventions:
*Risk Screen - Suicide Last Done: 01/16/24 15:39
*General Assessment Last Done: 01/16/24 15:39
*Neglect/Abuse Screening Last Done: 01/16/24 15:39
ED- Fall Risk Assessment Last Done: 01/16/24 18:03
*ED COVID-19 Vaccine History Last Done: 01/16/24 18:03
GI-Dflfkg-Bkttboarid Assessment Last Done: 01/16/24 18:07
Discharge Date and Time
Print Language: ZIMBABWEAN
[2024-01-16 19:00] VITALS: BP 115/71
[2024-01-16] MEDS: NSS 1000 IV (19:00)
--- NOTE | 2024-01-16 19:05 | HPS.HSE ---
Family Physician
-
Family Physician: Albina Ledezma MD
Chief Complaint
-
abdominal pain
History of Present Illness
Patient is a 43-year-old male with past medical history significant for pancreatitis, hypertension, GERD, diverticulosis, and lupus who presented to [place] [facility] for evaluation of upper abdominal pain with some radiation to back for past 2 days.
Patient states he has had previous episodes of autoimmune pancreatitis and knew that when still in discomfort today he needed to come to ED for evaluation and treatment. He denies any fever, chills, nausea, vomiting, consitpation or diarrhea.
Medical History
Past Medical History
Past Medical History: Reports Other
Additional Past Medical History:
pancreatitis
hypertension
GERD
diverticulosis
lupus
Past Surgical History: Reports Other
Additional Past Surgical History:
sigmoid colectomy (11/2023)
inguinal hernia
Social History
Tobacco: Non-smoker
Alcohol: None
Drug: Marijuana (occasionally with have edible)
Personal:
Living: With Family
Employment: Employed
Family History
Family History: Not pertinent
Allergies / Home Medications
Allergies reflects when Allergies were last updated in [facility]
Home Medications with original date entered in [facility] ([facility]
Allergy/Medication List:
Allergies
Allergy/AdvReac Type Severity Reaction Status Date / Time
hydromorphone [From Dilaudid] AdvReac Intermediate hypotension Verified 11/07/23 06:22
Home Medications
amlodipine 5 mg tablet 5 mg PO DAILY Blood Pressure 01/01/23
hydroxychloroquine 200 mg tablet (Plaquenil) 400 mg PO HS lupus 01/01/23
levocetirizine 5 mg tablet (Xyzal) 5 mg PO HS Allergies 01/01/23
omeprazole 40 mg capsule,delayed release 40 mg PO HS Gastrointestinal Issue 11/27/23
cholecalciferol (vitamin D3) 25 mcg (1,000 unit) tablet (Vitamin D3) 25 mcg PO DAILY 10/31/23
methotrexate sodium 2.5 mg tablet 10 mg PO SA@0900,2100 10/31/23
glycopyrrolate 1 mg tablet 1 mg PO BID 01/16/24
leucovorin calcium 5 mg tablet 15 mg PO CLARK@0900 01/16/24
naproxen sodium 220 mg tablet (Aleve) 220 mg PO HSPRN PRN mild pain 01/16/24
Review of Systems
-
History Source: Patient
Constitutional: Reports No Symptoms
EENT: Reports No Symptoms
Respiratory: Reports No Symptoms
Cardiac: Reports No Symptoms
Abdomen/GI: Reports Abdominal Pain (upper abdominal with some radiation to back )
: Reports No Symptoms
Musculoskeletal: Reports No Symptoms
Skin: Reports No Symptoms
Neurological: Reports No Symptoms
Endocrine: Reports No Symptoms
Hematologic/Lymphatic: Reports No Symptoms
Psych: Reports No Symptoms
Physical Exam
Vital Signs
Vital Signs
Temp Pulse Resp BP Pulse Ox
98.4 F 90 19 118/78 99
01/16/24 15:39 01/16/24 15:39 01/16/24 15:39 01/16/24 18:28 01/16/24 18:45
Physical Exam
General: Well Developed, Well Nourished, No Apparent Distress, Comfortable and Conversant
HEENT: NormoCephalic, Moist mucous membranes and Atraumatic
Respiratory: Clear and Non Labored Respirations
Cardiac: S1/S2 and Regular Rhythm; No Murmur, Rub or Gallop
Breast: Deferred by me
GI: Soft, Normal Bowel Sounds and Tender; No Organomegaly
Rectal: Deferred by Provider
Genito-urinary: Deferred by me
Musculoskeletal: No Clubbing, No Cyanosis and No Edema
Skin: Warm and IV/Catheter Site; No Rash
Neuro: Awake, Alert, AO x 3 and Nonfocal/grossly intact
Hematologic/Lymphatic: No Lymphadenopathy
Psych: Calm and Intact Judgment/Insight
Laboratory Results
-
01/16/24 15:46
01/16/24 15:46
Laboratory Results
Total Bilirubin Cancelled 01/16/24 15:46
AST Cancelled 01/16/24 15:46
ALT Cancelled 01/16/24 15:46
Alkaline Phosphatase Cancelled 01/16/24 15:46
Lipase 2841 U/L (23-300) H* 01/16/24 15:46
Data Reviewed
-
Lab Data: Labs Reviewed by me (Lipase 2841)
Impression/Plan
-
IMPRESSION/PLAN:
#autoimmune pancreatitis
Lipase - 2841
Hx pancreatitis
- Admit to M/S
- IVF
- pain management
- GI consult
#hypertension
- continue amlodipine
#GERD
- continue omeprazole
#diverticulosis
- continue
#lupus
- continue methotrexate
Code Status: Full Code
DVT Prophylaxis: Lovenox Sq
--- NOTE | 2024-01-16 19:44 | W.PN.UPDATE ---
Update Note
Progress Note Update
Patient seen in conjunction with KEV. I agree with the findings on history or physical as well as assessment and plan.
Briefly, this is a 43-year-old with past medical history significant for systemic lupus, hypertension, GERD and history of recurrent pancreatitis. Patient states that started having symptoms yesterday. He derived from activity and noted that
generalized epigastric and bilateral upper quadrant discomfort. He states this is reminiscent of his prior parotiditis so he stopped eating. The pain persisted so he decided come to the emergency room today. He denied nausea or vomiting. He has
not been have any diarrhea he has not had any fevers or chills. Patient reports his last bout of pancreatitis was a year ago for which was attributed to possibly Paxlovid. He had prior history of diverticulosis/diverticulitis status post bowel
resection.
On arrival in the ED he was well-appearing afebrile and hemodynamically stable. His routine labs including CBC and chemistries were within normal limits. His lipase was elevated at over 2000.
Benign appearing examination.
Assessment and plan
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
- admit to med/surg
- iv fluids, pain control and npo for now , usually improves after 1-2 days
- no steroids
- GI consultation
- continue methotrexate and hydroxychloroquine
DVT PPX
Full Code
[2024-01-16 20:00] VITALS: BP 130/84
[2024-01-16 21:08] VITALS: BP 151/94; BMI 38.7
[2024-01-16] MEDS: TORADOL 30 MG IV (21:38)
[2024-01-16] MEDS: LR 1000 IV (21:38)
[2024-01-16] MEDS: ROBINUL 1 MG PO (21:39)
--- NOTE | 2024-01-16 22:01 | PTCARENOTE ---
Patient arrived to unit via stretcher with dx of pancreatitis around 21:00. AAOX3. Pleasant and cooperative with care. Pain 6/10 to bilateral upper quadrants. PRN Toradol given. Oriented to unit. Call ester cuevas.
[2024-01-16 23:58] VITALS: BP 104/65
--- NOTE | 2024-01-17 03:30 | DOWNTIME ---
There was a [employer] Downtime on 01/17/2024 from 0200 to 01/17/2024 at 0325 . Downtime documentation of patient's care, including medication administrations, has been reconciled in the electronic record per guidelines. Refer to the
patient's paper chart under the miscellaneous tab to see printed paper medication records and downtime forms.
[2024-01-17] MEDS: LR 1000 IV ×2 (04:15→10:16)
[2024-01-17 07:01] VITALS: BP 116/73
--- NOTE | 2024-01-17 07:07 | W.PN.HOSP.TC ---
Today's Communication/Plan
-
Tolerating Low Fat diet
IVF completed
Cont monitoring
Repeat Lipase in AM
Likely discharge in morning if remains symptomatically improved
Discontinue NSAID use as per GI
prn Tramadol moderate severe pain
PRN Tylenol.
Assessment / Plan
Assessment / Plan
Physical Exam
General: Well Developed, Well Nourished, No Apparent Distress, Comfortable and Conversant
HEENT: NormoCephalic, Moist mucous membranes and Atraumatic
Respiratory: Clear and Non Labored Respirations
Cardiac: S1/S2 and Regular Rhythm; No Murmur, Rub or Gallop
GI: Soft, Bowel sounds present some tenderness noted though significantly improved as per patient
Musculoskeletal: No Clubbing, No Cyanosis and No Edema
Neuro: AOx3
Psych: Calm and Intact Judgment/Insight
43M pancreatitis, hypertension, GERD, diverticulosis, and lupus p/w upper abd pain and radiation to back for past 2 days- similar to his previous episodes of autoimmune pancreatitis, prompting ED evaluation. Denied fever, chills, nausea, vomiting,
constipation or diarrhea.
#autoimmune pancreatitis
Hx pancreatitis
-Lipase - 2841 since resolved following IVF
-IVF since completed
- pain control
- GI consult appreciated diet advanced to Low fat tolerating
#hypertension
- continue amlodipine
#GERD
- on home omeprazole HS, cont PPI equivalent while inpt
#diverticulosis
#lupus
- continue methotrexate Plaquenil
Code Status: Full Code
DVT Prophylaxis: Lovenox Sq
I spent a total of 50 minutes with the patient or on the floor. More than 50% of this time involved counseling and coordination of care.
Anticipated Discharge: Within 24 hours
Subjective/Interval History
-
Date of Service: January 17, 2024
Overall reports significant improvement in symptoms including abdomen pain tenderness. Tolerated low fat diet.
Objective Data
-
Labs:
Laboratory Results
01/17/24
06:54
WBC Pending
Hgb Pending
Hct Pending
Plt Count Pending
Sodium Pending
Potassium Pending
Chloride Pending
Carbon Dioxide Pending
BUN Pending
Creatinine Pending
Glucose Pending
Calcium Pending
Total Bilirubin Pending
AST Pending
ALT Pending
Alkaline Phosphatase Pending
Vital Signs:
Vital Signs
Temp Pulse Resp BP Pulse Ox
98.3 F 90 19 104/65 97
01/16/24 23:58 01/16/24 23:58 01/16/24 23:58 01/16/24 23:58 01/16/24 23:58
I&O
01/16/24 01/17/24 01/18/24
06:59 06:59 06:59
Intake Total 1200 / 1200
Balance 1200 / 1200
[2024-01-17 07:28] LABS: Hematocrit 37.2 % (39.0-52.0); Mean Corp Hgb Conc. 32.3 g/dL (33.0-37.0); Mean Corpuscular Hgb 27.9 pg (27.0-31.0); Mean Corpuscular Volume 86.5 fL (80.0-94.0); Mean Platelet Volume 9.9 fL (7.4-10.4); Platelet Count 201 10^3/uL (130-400); Red Cell Dist. Width 14.9 % (11.5-14.5); White Blood Cell Count 6.5 10^3/uL (4.8-10.8)
[2024-01-17 07:49] LABS: ALT (SGPT) 19 U/L (0-50); AST (SGOT) 18 U/L (17-59); Albumin 3.7 g/dl (3.5-5.0); Alkaline Phosphatase 63 U/L (38-126); Blood Urea Nitrogen 12 mg/dl (9-20); Calcium 8.8 mg/dl (8.4-10.2); Carbon Dioxide 28 mmol/L (22-30); Chloride 106 mmol/L (98-107); Estimated Creatinine Clearance > 125 ml/min; Glucose 88 mg/dl (70-99); Lipase 701 U/L (23-300); Potassium 4.4 mmol/L (3.5-5.1); Sodium 141 mmol/L (135-145); Total Bilirubin 0.7 mg/dl (0.2-1.3); Total Protein 6.1 g/dl (6.3-8.2); eGFR > 60.00
--- NOTE | 2024-01-17 08:10 | CON.GI ---
Medical History
Chief Complaint / HPI
Chief Complaint: Epigastric pain/chronic pancreatitis
History of Present Illness:
Patient is a 43-year-old male with past medical history of essential hypertension, SLE, GERD, fatty liver who had recurrent hospital admissions for pancreatitis.According to the patient he was in his usual state of health 2 days ago on January 14,
2023 when he started to feel little bit discomfort in his stomach but he ignored it and went to work event where he had pasta, salad and garlic bread and that is when he felt that the pain started to progress. He chose to fast the next day since he
is aware of the symptoms related to the pancreatitis but it did not help and he presented to the emergency with a dull achy discomfort in the epigastric region with intermittent pinching sensation, it was 6/10 on presentation but according to the
patient gradually improved and today he does not have the pain just a mild tenderness on palpation.
He denies any nausea, vomiting, diarrhea, constipation, fever, chills, palpitations, shortness of breath, alcohol use, or smoking.
Patient is well aware of his medical history, last year in December 2022 he had COVID and had the onset of pain when he was started on Paxlovid.He had 2 episodes prior to that and at that time etiology could be found. He BMI of 38.7, he has history
of autoimmune conditions that his SLE, he repeatedly uses naproxen for his joint pains, and he has history of hypertriglyceridemia in his mom but he does not know when she was diagnosed and according to him he never had the lipid panel done.
The patient follows up with GI at [facility] (Dr. Bellamy). According to him he had recent endoscopy and colonoscopy in 2023 done in [facility] which was all okay but no records available.
Past Medical History
Past Medical History: GERD, HTN and Other (Diverticulosis,lupus,fatty liver)
Past Surgical History: Other (sigmoid colectomy (11/2023) inguinal hernia,Diverticulitis with abscess s/p IR drain(09/2023) and then Robotic sigmoid resection with takedown of splenic flexure for diverticulitis with a fistula (11/2023))
Social History
Tobacco: Non-Smoker
Alcohol: None
Drug: Marijuana
Personal:
Living: With Family
Employment: Employed
Family History
Family History: Reviewed & Not Pertinent
Allergies / Home Medications
Allergy/AdvReac Type Severity Reaction Status Date / Time
hydromorphone [From Dilaudid] Allergy hypotension Verified 01/16/24 21:06
�Medication �Instructions �Recorded
amlodipine 5 mg tablet 5 mg PO DAILY Blood Pressure 01/01/23
hydroxychloroquine 200 mg tablet 400 mg PO HS lupus 01/01/23
(Plaquenil)
levocetirizine 5 mg tablet (Xyzal) 5 mg PO HS Allergies 01/01/23
omeprazole 40 mg capsule,delayed 40 mg PO HS Gastrointestinal Issue 01/01/23
release
cholecalciferol (vitamin D3) 25 25 mcg PO DAILY 10/31/23
mcg (1,000 unit) tablet (Vitamin
D3)
methotrexate sodium 2.5 mg tablet 10 mg PO SA@0900,2100 10/31/23
glycopyrrolate 1 mg tablet 1 mg PO BID 01/16/24
leucovorin calcium 5 mg tablet 15 mg PO CLARK@0900 01/16/24
naproxen sodium 220 mg tablet 220 mg PO HSPRN PRN mild pain 01/16/24
(Aleve)
Review of Systems
-
All other systems: A 12 pt ROS was Negative except as stated above in HPI
Vital Signs
Temp Pulse Resp BP Pulse Ox
98.3 F 90 19 104/65 97
01/16/24 23:58 01/16/24 23:58 01/16/24 23:58 01/16/24 23:58 01/16/24 23:58
Physical Exam
Exam
General: Well Developed, Well Nourished, No Apparent Distress and Comfortable
HEENT: Anicteric and Moist Mucous Membranes
Respiratory: Clear and Other (No wheezes rhonchi or rales)
Cardiac: S1/S2 and Regular Rhythm
GI: Soft, Non Tender (Only mild discomfort on palpation) and Other (Decreased bowel sounds)
Musculoskeletal: No Clubbing, No Cyanosis and No Edema
Neuro: Oriented and No Motor Deficits
Psych: Calm
Results
WBC 6.5 10^3/uL (4.8-10.8) 01/17/24 06:54
Hgb 12.0 g/dL (13.0-18.0) L 01/17/24 06:54
Hct 37.2 % (39.0-52.0) L 01/17/24 06:54
MCV 86.5 fL (80.0-94.0) 01/17/24 06:54
Plt Count 201 10^3/uL (130-400) 01/17/24 06:54
Absolute Neuts (auto) 6.3 10^3/uL (1.4-6.5) 01/16/24 15:46
Sodium 141 mmol/L (135-145) 01/17/24 06:54
Potassium 4.4 mmol/L (3.5-5.1) 01/17/24 06:54
Chloride 106 mmol/L (98-107) 01/17/24 06:54
Carbon Dioxide 28 mmol/L (22-30) 01/17/24 06:54
BUN 12 mg/dl (9-20) 01/17/24 06:54
Creatinine 0.8 mg/dL (0.7-1.3) 01/17/24 06:54
Calcium 8.8 mg/dl (8.4-10.2) 01/17/24 06:54
Total Bilirubin 0.7 mg/dl (0.2-1.3) 01/17/24 06:54
AST 18 U/L (17-59) 01/17/24 06:54
ALT 19 U/L (0-50) 01/17/24 06:54
Alkaline Phosphatase 63 U/L (38-126) 01/17/24 06:54
Lipase 701 U/L (23-300) H 01/17/24 06:54
Diagnostic Image Results:
Prior GI Procedures:
EGD:
Marc Patino MD, 2018
Impression: - Z-line regular, 39 cm from the incisors. Biopsied.
- Chronic gastritis. Biopsied.
- Normal third portion of the duodenum. Biopsied.
Colonoscopy:
Marc Patino MD 08/20/2013
Indications: Screening for colorectal malignant neoplasm, Screening
in patient at increased risk: Family history 1st-degree
relative with colorectal cancer < 60 years old,
Incidental - Diverticulitis
Impression: - Diverticulosis in the sigmoid colon.
- One 3 mm polyp in the sigmoid colon. Resected and
retrieved.
- The examination was otherwise normal.
According to the patient he had an endoscopy and colonoscopy done at [facility] in 2023 and it was all okay but no records available
Assessment / Plan
-
IMPRESSION
Patient is a 43-year-old male who has past medical history of hypertension, systemic lupus erythematosus, recurrent episodes of pancreatitis, recently admitted for upper epigastric pain along with increased lipase levels, signs and symptoms
consistent with acute pancreatitis.
BMI 38.7
History of hypertriglyceridemia in family
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
Lipase 2841(01/16/24) and 701(01/17/24)
LFTs, bilirubin, serum creatinine, within normal limits
Blood pressure remained stable throughout
No nausea, vomiting, constipation, diarrhea
Fatty liver
ASSESSMENT/PLAN
Due to patient's previous history, it could be acute on chronic pancreatitis
Based on patient's BMI and family history of hypertriglyceridemia, it could be secondary to hypertriglyceridemia
Could have been gastritis secondary to repeated naproxen use
Patient reports positive IgG4 levels but it has remained normal as per record
Imaging has been normal in past as well
PLAN
Continue to trend lipase levels
Patient is n.p.o. and reports significant improvement in pain
Can progress diet to clear liquids
-
-
Thank you for consultation and allowing me to participate in the patient's care. Please call the pest control specialist GI physician during the after hours with any questions or concerns.
[2024-01-17 10:15] LABS: HDL Cholesterol 38 mg/dl; LDL Cholesterol, Calculated 57 mg/dl; Total Cholesterol 112 mg/dl (50-199); Triglyceride 86 mg/dl (10-149); Very Low Density Lipoprotein 17 mg/dl (0-30)
[2024-01-17] MEDS: ROBINUL 1 MG PO ×2 (10:15→21:31)
[2024-01-17] MEDS: NORVASC 5 MG PO (10:15)
[2024-01-17] MEDS: VITAMIN D3 (cholecalciferol) 25 MCG PO (10:16)
[2024-01-17] MEDS: TORADOL 30 MG IV (10:24)
[2024-01-17] MEDS: FLUSH (NSS) 1 FLUSH IV (10:25)
[2024-01-17 15:05] VITALS: BP 119/81
[2024-01-17] MEDS: TYLENOL 650 MG PO (15:19)
--- NOTE | 2024-01-17 16:35 | PTCARENOTE ---
Pt AAO x3, TSANG well, OOB in room/to BR. VSS. On room air- pulseox 95%, no SOB noted. Abd large, soft, marlene low fat diet. Pt c/o abd discomfort not affected by PO intake. Voiding in BR without difficulty. Resting in bed at present. Will
continue to monitor.
[2024-01-17] MEDS: LOVENOX 40 MG SC (17:43)
[2024-01-17] MEDS: PROTONIX 40 MG PO (21:31)
[2024-01-17] MEDS: PLAQUENIL 400 MG PO (22:06)
[2024-01-17 23:58] VITALS: BP 137/89
--- NOTE | 2024-01-18 06:12 | W.PN.GI.CBS2 ---
Today's Communication / Plan
-
Improving from recent recurrent pancreatitis and tolerating low-fat diet without difficulty with ongoing bowel function. Needs an eventual EUS as outpatient given his history of IARP and discussed close f/u with his primary Confectionery Laboratory Manager at [facility] (f/w Dr. Bellamy). Rest of care as outlined below and okay to d/c from GI standpoint. GI team will sign-off. Please call back with any questions or concerns.
Assessment / Plan
-
#Idiopathic, Acute Recurrent Pancreatitis
This is a 43-year-old male with past medical history of diverticulitis with fistula status post sigmoidectomy with Dr. Jones 11/07/2023, recurrent pancreatitis, GERD, IBS, fatty liver, lupus on Plaquenil and methotrexate with folic acid presented to
the emergency room with symptoms of epigastric pain since yesterday which he says felt similar to his prior episodes of acute pancreatitis. He had 2 episodes of acute pancreatitis in 2017 and another episode in December 2022 with no obvious
etiology found. His triglyceride levels were normal, IgG4 levels were normal and also ultrasound was negative for gallstones, no ETOH use. He sees Dr. Bellamy at [facility] and had a colonoscopy and endoscopy in March which he says was pretty
unremarkable he was having some symptoms of dysphagia at that time. He does take omeprazole daily for acid reflux. He denies any diarrhea or constipation currently. He was noted to have elevated lipase level on admission and was treated with IV
fluids and is feeling much improved today.
Impression: Patient with idiopathic, acute recurrent pancreatitis. This is his fourth episode 2 episodes in 2018, 1 episode in December 2022 prior to this. Unclear etiology as described above workup so far is essentially unremarkable no evidence of
gallstones were noted, triglycerides are normal, IgG4 level was also normal. He also denies any alcohol use. No recent change in medications other than glycopyrrolate which he is taking for hyperhidrosis. He had COVID in December 2022 and was on
Paxlovid at that time and it was thought to be either related to COVID or the Paxlovid then but prior to that no obvious etiology for the pancreatitis. I told him to follow-up with Dr. Bellamy for endoscopic ultrasound for possible idiopathic
pancreatitis and there is no family history of pancreatitis or pancreatic cancer so doubt genetic. Does endorse intermittent NSAID use as well. No prior EUS and will certainly need this as a structural evaluation and to rule out
sludge/microlithiasis given his history of IARP and follows closely with GI (Dr. Bellamy) at [facility].
He also uses NSAIDs sometimes I told him to avoid them. there is no history of other GI cancers. will start him on low-fat diet and if he tolerates okay to DC home today and follow-up with Dr. Bellamy at [facility] as outpatient.
GERD continue omeprazole.
Recommendations:
- Tolerating low-fat diet
- May continue home Omeprazole for GERD
- Bowel regimen with Miralax as needed and having ongoing bowel function
- Discussed importance of close outpatient f/u with his primary Confectionery Laboratory Manager, Dr. Bellamy, as patient will require an eventual EUS given his history of IARP (4th episode)
- Anti-emetics PRN
- Avoidance of all NSAIDs
- Rest of care per primary team
Discussed with primary internal medicine team this AM. GI team will sign-off. Please call back with any questions or concerns.
Subjective
Subjective
Date of Service: January 18, 2024
- No acute events overnight
Feeling well this morning with near, complete resolution of previous abdominal pain. Tolerated low-fat diet without difficulty and having bowel function. No nausea or vomiting. Discussed importance of close follow-up with his primary
Confectionery Laboratory Manager at [facility] as he will need an EUS as an outpatient.
Objective
Data Reviewed
Laboratory Data:
Laboratory Results
Total Bilirubin 0.7 mg/dl (0.2-1.3) 01/17/24 06:54
AST 18 U/L (17-59) 01/17/24 06:54
ALT 19 U/L (0-50) 12/12/24 06:54
Alkaline Phosphatase 63 U/L (38-126) 01/17/24 06:54
Lipase 701 U/L (23-300) H 01/17/24 06:54
Vital Signs and I&O:
Vital Signs
Temp Pulse Resp BP Pulse Ox
98.3 F 96 18 137/89 97
01/17/24 23:58 01/17/24 23:58 01/17/24 23:58 01/17/24 23:58 01/17/24 23:58
I&O
01/16/24 01/17/24 01/18/24
06:59 06:59 06:59
Intake Total 1440 / 1440 2039
Balance 1440 / 1440 2039
Physical Exam
Physical Exam
HEENT: Anicteric and Moist mucous membranes
Cardiology: Normal Sinus Rhythm
Pulmonary: Other (Normal WOB on room air)
GI: Soft, Distended (Mild distension and protuberant abdomen) and Non Tender
Extremities: No Edema
Neuro: Non Focal
[2024-01-18 07:10] VITALS: BP 125/89
[2024-01-18] MEDS: THERAGRAN 1 TABLET PO (08:56)
[2024-01-18] MEDS: NORVASC 5 MG PO (08:56)
[2024-01-18] MEDS: VITAMIN D3 (cholecalciferol) 25 MCG PO (08:57)
[2024-01-18] MEDS: ROBINUL 1 MG PO (08:57)
[2024-01-18 09:40] LABS: Hematocrit 37.5 % (39.0-52.0); Hemoglobin 12.3 g/dL (13.0-18.0); Mean Corp Hgb Conc. 32.8 g/dL (33.0-37.0); Mean Corpuscular Hgb 27.6 pg (27.0-31.0); Mean Corpuscular Volume 84.1 fL (80.0-94.0); Mean Platelet Volume 10.4 fL (7.4-10.4); Platelet Count 227 10^3/uL (130-400); Red Blood Cell Count 4.46 10^6/uL (4.70-6.10); Red Cell Dist. Width 14.8 % (11.5-14.5)
[2024-01-18 10:44] LABS: Blood Urea Nitrogen 11 mg/dl (9-20); Carbon Dioxide 26 mmol/L (22-30); Chloride 107 mmol/L (98-107); Estimated Creatinine Clearance > 125 ml/min; Glucose 96 mg/dl (70-99); Lipase 109 U/L (23-300); Potassium 4.1 mmol/L (3.5-5.1); Sodium 140 mmol/L (135-145); eGFR > 60.00
--- NOTE | 2024-01-18 11:21 | W.PN.HOSP.TC ---
Today's Communication/Plan
-
discharge
Assessment / Plan
Assessment / Plan
Physical Exam
General: Well Developed, Well Nourished, No Apparent Distress, Comfortable and Conversant
HEENT: NormoCephalic, Moist mucous membranes and Atraumatic
Respiratory: Clear and Non Labored Respirations
Cardiac: S1/S2 and Regular Rhythm; No Murmur, Rub or Gallop
GI: Soft, Bowel sounds present, nontender
Musculoskeletal: No Clubbing, No Cyanosis and No Edema
Neuro: AOx3
Psych: Calm and Intact Judgment/Insight
43M pancreatitis, hypertension, GERD, diverticulosis, and lupus p/w upper abd pain and radiation to back for past 2 days- similar to his previous episodes of autoimmune pancreatitis, prompting ED evaluation. Denied fever, chills, nausea, vomiting,
constipation or diarrhea.
#Idiopathic acute recurrent pancreatitis [correction to prior documentation]
Hx pancreatitis
-Lipase - 2841 since resolved following IVF
-IVF since completed
- pain control
- GI consult appreciated diet advanced to Low fat tolerating
#hypertension
- continue amlodipine
#GERD
- on home omeprazole HS, cont PPI equivalent while inpt
#diverticulosis
#lupus
- continue methotrexate Plaquenil
Code Status: Full Code
DVT Prophylaxis: Lovenox Sq
Medically stable for discharge home with outpatient follow up recommendations.
Total Time Preparing Discharge ___40____ minutes including examination of the patient, summary of the hospital stay, instructions for continuing care to all relevant caregivers; and preparation of discharge records, prescriptions, and referral
forms if necessary.
Anticipated Discharge: Today
Subjective/Interval History
-
Date of Service: January 18, 2024
Seen and examined at bedside in no acute distress sitting up comfortably in bed. Reports complete symptom relief. Denies new acute issues. Tolerating diet. Eager to go home
Objective Data
-
Labs:
Laboratory Results
01/18/24
08:39
WBC 6.0
Hgb 12.3 L
Hct 37.5 L
Plt Count 227
Sodium 140
Potassium 4.1
Chloride 107
Carbon Dioxide 26
BUN 11
Creatinine 0.8
Glucose 96
Calcium 9.0
Vital Signs:
Vital Signs
Temp Pulse Resp BP Pulse Ox
98.6 F 90 16 125/89 97
01/18/24 07:10 01/18/24 08:56 01/18/24 07:10 01/18/24 08:56 01/18/24 07:10
I&O
01/17/24 01/18/24 01/19/24
06:59 06:59 06:59
Intake Total 1440 / 1440 2039
Balance 1440 / 1440 2039
--- NOTE | 2024-01-18 11:38 | W.DCSUMMARY ---
Discharge Summary
Discharge Data
Date of Admission: 01/16/24
Date of Discharge: 01/18/24
-
Pending Results: No
Discharge Plan
-
Patient Disposition: Home (Routine Discharge)
Discharge Diagnosis/Procedures: Recurrent Pancreatitis
Condition: Good
Diet: Low Fat
Activity: As tolerated
Driving Restrictions: As prior to admission
Bathing Restrictions: None
Activity Restrictions/Additional Instructions:
Follow up with primary care provider in 1 week of discharge and GI in 2 weeks.
Multivitamin prescribed for nutrition support. This is available over the counter.
It is recommended that you avoid NSAIDs such as naproxen (discontinued from home medications), as it is possible that they may lead to recurrence of pancreatitis.
Tylenol has been prescribed as needed for pain. This is also available over the counter.
Please take medications as prescribed/recommended and follow up with primary care provider and/or other healthcare provider involved in your care for refills and/or further adjustment to your medication regimen as necessary.
Referrals:
Elpidio Bellamy DO [Non-Admitting Privileges] - in two weeks
Albina Ledezma MD [Family Provider] - in one week
Prescriptions:
New
multivitamin with folic acid [Tab-A-Donovan] 400 mcg Tablet
1 tab PO DAILY 30 Days Qty: 30 0RF
acetaminophen 325 mg Tablet
650 mg PO Q6HPRN PRN (Reason: mild pain/ fever>100.5F/BHATT) Qty: 240 0RF
Continued
amlodipine 5 mg Tablet
5 mg PO DAILY
omeprazole 40 mg Capsule,Delayed Release(Dr/Ec)
40 mg PO HS
Patient Comments:
pt stopped taking due to stomach issues, wants to resume
hydroxychloroquine [Plaquenil] 200 mg Tablet
400 mg PO HS
Patient Comments:
pt stopped taking due to stomach issues, wants to resume
levocetirizine [Xyzal] 5 mg Tablet
5 mg PO HS
methotrexate sodium 2.5 mg Tablet
10 mg PO SA@0900,2100
cholecalciferol (vitamin D3) [Vitamin D3] 25 mcg (1,000 unit) Tablet
25 mcg PO DAILY
glycopyrrolate 1 mg Tablet
1 mg PO BID
leucovorin calcium 5 mg Tablet
15 mg PO CLARK@0900
Discontinued
naproxen sodium [Aleve] 220 mg Tablet
220 mg PO HSPRN PRN (Reason: mild pain)
Discharge Orders:
Discharge Patient (As Directed); Ordered 01/18/24
Ordered By: Rebecca Rivas
Discharge Date and Time
Print Language: NEPALI
--- NOTE | 2024-01-18 13:58 | CM ---
CM met with the patient at the bedside. He resides with his spouse and daughter in a mobile home with three steps to enter.
The patient reports no DME/SNF, but has had [facility] in the past along with [facility].
The patient confirmed his pharmacy of choice is [facility]. CM continues to be available to patient/family and is monitoring medical plan for needs at discharge.
Plan: Discharge to home with no needs when medically stable.
[2024-01-18 14:17] VITALS: BP 130/89
== END 2024-01-18 13:53 | disposition home or self-care (01) | DRG 440 ==
LOC: 4 EAST ACU 19:55
PROVIDERS: Nurse Practitioner Family; Physician Assistant; ADMITTING PHYSICIAN Internal Medicine; ATTENDING PHYSICIAN Internal Medicine; CONSULT PHYSICIAN Internal Medicine Gastroenterology; EMERGENCY PHYSICIAN Emergency Medicine; FAMILY PHYSICIAN Family Medicine
DX: K85.90 Acute pancreatitis without necrosis or infection, unspecified (principal); K21.9 Gastro-esophageal reflux disease without esophagitis; M32.9 Systemic lupus erythematosus, unspecified; K76.0 Fatty (change of) liver, not elsewhere classified; K57.90 Diverticulosis of intestine, part unspecified, without perforation or abscess without bleeding; I10 Essential (primary) hypertension; Z88.5 Allergy status to narcotic agent; Z90.49 Acquired absence of other specified parts of digestive tract; Z86.16 Personal history of COVID-19; Z79.631 Long term (current) use of antimetabolite agent
CPT/HCPCS: 80048; 80053; 80061; 83690; 85025; 85027; 96360; 99284

== ENCOUNTER → 2024-03-11 07:33 | Outpatient (REF) | payer OTHER, SELFPAY | LOC: PAVMRI 07:33 | PROVIDERS: ATTENDING PHYSICIAN Physician Assistant; FAMILY PHYSICIAN Family Medicine | DX: K85.90 Acute pancreatitis without necrosis or infection, unspecified (principal) | CPT/HCPCS: 74183; A9575 ==

== ENCOUNTER → 2024-07-16 14:32 | Outpatient (REF) | payer OTHER, SELFPAY | LOC: RCS 14:32 | PROVIDERS: ATTENDING PHYSICIAN Nurse Practitioner Gerontology; FAMILY PHYSICIAN Family Medicine | DX: Z79.899 Other long term (current) drug therapy (principal) | CPT/HCPCS: 93005 ==